=== PATIENT | female | born 1980 | race Caucasian/White ===

== ENCOUNTER 2019-10-04 11:29 | Emergency (ER) | payer OTHER ==
[2019-10-04 11:45] VITALS: TEMP 98.2
--- NOTE | 2019-10-04 12:14 | ED ---
General Adult HPI - General Chief complaint: ENT Stated complaint: throat pain Time Seen by Provider: 10/04/19 12:02 Source: patient, RN notes reviewed Mode of arrival: ambulatory Limitations: no limitations - History of Present Illness Initial comments: Patient is a pleasant 39-year-old female presenting to the emergency department with sore throat. Symptoms have been waxing and waning over the past couple of weeks. Patient does have sinus congestion and sinus drainage. Drainage is clear yellow. Patient at times has chills fatigue and myalgias. Patient does take Tylenol which seems to help. No difficulty in breathing. - Related Data Previous Rx's Medication Instructions Recorded Amoxicillin 500 mg PO Q8H #30 capsule 10/04/19 Allergies Allergy/AdvReac Type Severity Reaction Status Date / Time No Known Allergies Allergy Verified 10/04/19 11:45 Review of Systems ROS Statement: Those systems with pertinent positive or pertinent negative responses have been documented in the HPI. ROS Other: All systems not noted in ROS Statement are negative. Constitutional: Reports: chills. Denies: fever (Patient states she has subjective fever but when she checks it there is no elevation of temperature) ENT: Reports: throat pain, congestion. Denies: ear pain Respiratory: Reports: cough (Minimal dry cough). Denies: dyspnea Cardiovascular: Denies: chest pain Endocrine: Reports: fatigue Gastrointestinal: Denies: abdominal pain Genitourinary: Denies: dysuria Musculoskeletal: Denies: back pain Skin: Denies: rash Neurological: Denies: weakness Past Medical History Past Medical History: No Reported History History of Any Multi-Drug Resistant Organisms: None Reported Past Surgical History: No Surgical Hx Reported Smoking Status: Current every day smoker Past Alcohol Use History: None Reported Past Drug Use History: Marijuana General Exam Limitations: no limitations General appearance: alert, in no apparent distress Head exam: Present: normocephalic Eye exam: Present: PERRL ENT exam: Present: other (Mild pharyngeal cobblestoning. Tenderness over the frontal ethmoid and x-ray sinuses) Neck exam: Present: normal inspection Respiratory exam: Present: normal lung sounds bilaterally Cardiovascular Exam: Present: regular rate, normal rhythm GI/Abdominal exam: Present: soft. Absent: tenderness Extremities exam: Present: normal inspection. Absent: pedal edema, calf tenderness Neurological exam: Present: alert Psychiatric exam: Present: normal affect, normal mood Skin exam: Present: normal color Course Vital Signs 10/04/19 11:41 Temperature 98.2 F Pulse Rate 76 Respiratory 18 Rate Blood Pressure 159/106 O2 Sat by Pulse 97 Oximetry Disposition Clinical Impression: Sinusitis, Allergies Disposition: HOME SELF-CARE Condition: Stable Instructions (If sedation given, give patient instructions): Allergies (ED), Sinusitis (ED) Additional Instructions: Please follow-up with primary care physician in the next couple days for recheck. Have primary care physician recheck blood pressure. Return for diff iculty in breathing, uncontrolled fevers, worsening or changing symptoms or any other concerns. Continue [id number] Claritin. Please start either [id number] Flonase or nasonex Prescription sent to [facility] on [address] Prescriptions: Amoxicillin 500 mg PO Q8H #30 capsule Is patient prescribed a controlled substance at d/c from ED?: No Referrals: Reagan Elkins [STAFF PHYSICIAN] - 1-2 days Time of Disposition: 12:13
[2019-10-04 12:16] VITALS: BP 156/94; PULSE 86; RESP 16
== END 2019-10-04 13:02 | disposition home or self-care (01) ==
LOC: EC 11:29
DX: J32.9 Chronic sinusitis, unspecified (principal); T78.40XA Allergy, unspecified, initial encounter; F17.200 Nicotine dependence, unspecified, uncomplicated
CPT/HCPCS: 99282

== ENCOUNTER 2020-09-30 02:41 | Emergency (ER) | payer OTHER ==
[2020-09-30] MEDS ORDERED: ONDANSETRON 4 MG/2 ML VIAL IVP STA (03:37)
[2020-09-30] MEDS ORDERED: SODIUM CHLORIDE 0.9% 500 ML 500 ML IV STA (03:37)
[2020-09-30] MEDS ORDERED: MORPHINE SULFATE 4 MG/ML SYRINGE IV STA (03:37)
[2020-09-30 03:41] LABS: Basophils # (A) 0.1 k/uL (0-0.2); Basophils % (A) 1 %; Eosinophils # (A) 0.1 k/uL (0-0.7); Eosinophils % (A) 1 %; HCT 42.9 % (34.0-46.0); HGB 13.7 gm/dL (11.4-16.0); Lymphocytes # (A) 2.1 k/uL (1.0-4.8); Lymphocytes % (A) 17 %; MCH 29.6 pg (25.0-35.0); MCHC 32.1 g/dL (31.0-37.0); MCV 92.2 fL (80.0-100.0); Mean Platelet Volume 8.6; Monocytes # (A) 0.4 k/uL (0-1.0); Monocytes % (A) 3 %; Neutrophils # (A) 9.4 k/uL (1.3-7.7); Neutrophils % (A) 78 %; Platelet Count 386 k/uL (150-450); RBC 4.65 m/uL (3.80-5.40); RDW 15.1 % (11.5-15.5); WBC 12.1 k/uL (3.8-10.6)
--- NOTE | 2020-09-30 04:15 | CT ---
EXAMINATION TYPE: CT abdomen pelvis wo con DATE OF EXAM: 09/30/2020 COMPARISON: None HISTORY: RUQ pain CT DLP: 649.70 mGycm Automated exposure control for dose reduction was used. There is some atelectasis at the lung bases. Heart is mildly enlarged. There is no pleural effusion. Liver spleen stomach pancreas gallbladder appear intact. The bile ducts are not dilated. Liver is large and measures 22 cm in length. There is no adrenal mass. Kidneys have normal size. There is no hydronephrosis. Ureters are not dilat ed. There is no retroperitoneal adenopathy. Bladder distends smoothly. There is no inguinal hernia. T here is no free fluid in the pelvis. Lumbar vertebra have normal alignment. Uterus is anteverted. There is vacuum disc at L5-S1. There is no lumbar compression fracture. There is no evidence of a pelvic mass. The bony pelvis is intact. Appendix appears normal. There is 2 cm umbilical hernia that contains fat.. There are sigmoid diverticula without evidence of diverticulitis. There is no mesenteric edema. There is no ascites or free air. There is no sign of a bowel obstructio n. IMPRESSION: Hepatomegaly. No dilated ducts. Sigmoid diverticulosis.
[2020-09-30 04:22] LABS: Appearance,Urine Clear (Clear); Bacteria,Urine Rare /hpf; Bilirubin,Urine Negative (Negative); Blood,Urine Negative (Negative); Color,Urine Yellow; Glucose,Urine (UA) Negative (Negative); Ketones,Urine 1+ (Negative); Leukocyte Esterase,Urine Negative (Negative); Mucus,Urine Occasional /hpf; Nitrite,Urine Negative (Negative); PH, Urine 5.5 (5.0-8.0); Protein,Urine 1+ (Negative); RBC,Urine 3 /hpf (0-5); Specific Gravity,Urine 1.015 (1.001-1.035); Squamous Epithelial Cell,Urine 1 /hpf (0-4); Urobilinogen,Urine <2.0 mg/dL (<2.0); WBC,Urine 1 /hpf (0-5)
[2020-09-30 04:29] LABS: ALT 35 U/L (4-34); AST 46 U/L (14-36); African American GFR (CKD) >90 (>60 ml/min/1.73 sqM); Albumin 4.9 g/dL (3.5-5.0); Alkaline Phosphatase 154 U/L (38-126); Amylase 97 U/L (30-110); Anion Gap 14 mmol/L; Blood Urea Nitrogen 7 mg/dL (7-17); Calcium 9.7 mg/dL (8.4-10.2); Carbon Dioxide 22 mmol/L (22-30); Chloride 101 mmol/L (98-107); Glucose 170 mg/dL (74-99); Lipase 328 U/L (23-300); Non-African American GFR(CKD) >90 (>60 ml/min/1.73 sqM); Potassium 4.3 mmol/L (3.5-5.1); Sodium 137 mmol/L (137-145); Total Bilirubin 0.2 mg/dL (0.2-1.3); Total Protein 7.9 g/dL (6.3-8.2)
[2020-09-30] MEDS ORDERED: DICYCLOMINE 20 MG TAB PO STA (06:21)
[2020-09-30 06:33] VITALS: BP 166/92; PULSE 77; RESP 18; TEMP 98
--- NOTE | 2020-09-30 08:10 | US ---
EXAMINATION TYPE: US abdomen limited DATE OF EXAM: 09/30/2020 COMPARISON: Same day CT CLINICAL HISTORY: 40-year-old female. Right upper quadrant abdominal pain, attention RUQ. Pt states A BD "burning" EXAM MEASUREMENTS: Liver Length: 20.9 cm Gallbladder Wall: 0.2 cm CBD: 0.4 cm Right Kidney: 10.6 x 4.0 x 4.6 cm Pancreas: Body wnl, head and tail obscured by overlying bowel gas Liver: Heterogeneous, difficult to penetrate, enlarged. No focal mass or dilated intrahepatic bile d ucts seen. Gallbladder: Gallbladder wall thickening gallbladder wall thickness about 2 mm. No shadowing calculi seen in the gallbladder lumen. There is pericholecystic fluid seen. Evidence for sonographic Small's sign: No CBD: wnl Right Kidney: wnl IMPRESSION: 1. Right hepatic lobe measuring up to 21 cm. 2. Suggestion of hepatic steatosis. 3. Trace pericholecystic fluid, no cholelithiasis or gallbladder wall thickening. Acute acalculous ch olecystitis less likely but cannot be entirely excluded. The need for further imaging (HIDA scan) or evaluation should be determined on clinical basis
[2020-09-30] MEDS ORDERED: KETOROLAC 15 MG/ML 1 ML VIAL IVP STA (08:28)
--- NOTE | 2020-09-30 08:38 | ED ---
Abdominal Pain HPI - General Chief Complaint: Abdominal Pain Stated Complaint: Abd Pain Time Seen by Provider: 09/30/20 02:57 Source: patient Mode of arrival: ambulatory Limitations: no limitations - History of Present Illness Initial Comments: This is a 40-year-old female who presents with one day of nausea vomiting and nonspecific abdominal pain. Decreased oral intake. Pain was crampy in nature. Patient was endorsed me initially by Dr. Dockery pending CT ultrasound results. She's had no hematemesis no blood per rectum. She did later confided in me that she is a somewhat heavy drinker. No history of DTs or withdrawal symptoms. MD Complaint: abdominal pain - Related Data Previous Rx's Medication Instructions Recorded Amoxicillin 500 mg PO Q8H #30 capsule 10/04/19 Dicyclomine [Bentyl] 10 mg PO TID #12 capsule 09/30/20 Ondansetron Odt [Zofran Odt] 4 mg PO Q8HR PRN #10 tab 09/30/20 Allergies Allergy/AdvReac Type Severity Reaction Status Date / Time No Known Allergies Allergy Verified 09/30/20 02:52 Review of Systems ROS Statement: Those systems with pertinent positive or pertinent negative responses have been documented in the HPI. ROS Other: All systems not noted in ROS Statement are negative. Past Medical History Past Medical History: No Reported History History of Any Multi-Drug Resistant Organisms: None Reported Past Surgical History: No Surgical Hx Reported Smoking Status: Current every day smoker Past Alcohol Use History: None Reported Past Drug Use History: Marijuana General Exam - General Exam Comments Initial Comments: Is a well-developed well-nourished awake alert oriented 3 female Limitations: no limitations General appearance: alert, in no apparent distress Head exam: Present: atraumatic, normocephalic, normal inspection Eye exam: Present: normal appearance, PERRL, EOMI. Absent: scleral icterus, conjunctival injection, periorbital swelling ENT exam: Present: mucous membranes dry Neck exam: Present: normal inspection. Absent: tenderness, meningismus, lymphadenopathy Respiratory exam: Present: normal lung sounds bilaterally. Absent: respiratory distress, wheezes, rales, rhonchi, stridor Cardiovascular Exam: Present: regular rate, normal rhythm, normal heart sounds. Absent: systolic murmur, diastolic murmur, rubs, gallop, clicks GI/Abdominal exam: Present: soft, tenderness (Mild left-sided tenderness on my examination the patient states this is different from earlier he does feel improved at this time), normal bowel sounds. Absent: distended, guarding, rebound, rigid Extremities exam: Present: normal inspection, full ROM, normal capillary refill. Absent: tenderness, pedal edema, joint swelling, calf tenderness Back exam: Present: normal inspection Neurological exam: Present: alert, oriented X3, CN II-XII intact Psychiatric exam: Present: normal affect, normal mood Skin exam: Present: warm, dry, intact, normal color. Absent: rash Course Vital Signs 09/30/20 09/30/20 02:50 06:32 Temperature 98.3 F 98.0 F Pulse Rate 89 77 Respiratory 20 18 Rate Blood Pressure 154/92 166/92 O2 Sat by Pulse 95 97 Oximetry Medical Decision Making - Medical Decision Making Patient is feeling improved though still some left-sided cramps I did discuss findings with patient and her significant other patient will be discharged with follow-up with GI and did discuss refraining from alcohol use. She states she does probably drinking too much. We did discuss the elevated liver and pancreatic enzymes. Discussed the significance. - Lab Data Result diagrams: 09/30/20 03:07 09/30/20 03:07 Lab Results 09/30/20 09/30/20 09/30/20 Range/Units 03:07 03:07 03:07 WBC 12.1 H (3.8-10.6) k/uL RBC 4.65 (3.80-5.40) m/uL Hgb 13.7 (11.4-16.0) gm/dL Hct 42.9 (34.0-46.0) % MCV 92.2 (80.0-100.0) fL MCH 29.6 (25.0-35.0) pg MCHC 32.1 (31.0-37.0) g/dL RDW 15.1 (11.5-15.5) % Plt Count 386 (150-450) k/uL MPV 8.6 Neutrophils % 78 % Lymphocytes % 17 % Monocytes % 3 % Eosinophils % 1 % Basophils % 1 % Neutrophils # 9.4 H (1.3-7.7) k/uL Lymphocytes # 2.1 (1.0-4.8) k/uL Monocytes # 0.4 (0-1.0) k/uL Eosinophils # 0.1 (0-0.7) k/uL Basophils # 0.1 (0-0.2) k/uL Sodium (137-145) mmol/L Potassium (3.5-5.1) mmol/L Chloride (98-107) mmol/L Carbon Dioxide (22-30) mmol/L Anion Gap mmol/L BUN (7-17) mg/dL Creatinine (0.52-1.04) mg/dL Est GFR (CKD-EPI)AfAm (>60 ml/min/1.73 sqM) Est GFR (CKD-EPI)NonAf (>60 ml/min/1.73 sqM) Glucose (74-99) mg/dL Calcium (8.4-10.2) mg/dL Total Bilirubin (0.2-1.3) mg/dL AST (14-36) U/L ALT (4-34) U/L Alkaline Phosphatase (38-126) U/L Troponin I (0.000-0.034) ng/mL Total Protein (6.3-8.2) g/dL Albumin (3.5-5.0) g/dL Amylase (30-110) U/L Lipase (23-300) U/L Urine Color Yellow Urine Appearance Clear (Clear) Urine pH 5.5 (5.0-8.0) Ur Specific Sandy 1.015 (1.001-1.035) Urine Protein 1+ H (Negative) Urine Glucose (UA) Negative (Negative) Urine Ketones 1+ H (Negative) Urine Blood Negative (Negative) Urine Nitrite Negative (Negative) Urine Bilirubin Negative (Negative) Urine Urobilinogen <2.0 (<2.0) mg/dL Ur Leukocyte Esterase Negative (Negative) Urine RBC 3 (0-5) /hpf Urine WBC 1 (0-5) /hpf Ur Squamous Epith Cells 1 (0-4) /hpf Urine Bacteria Rare H (None) /hpf Urine Mucus Occasional H (None) /hpf Urine HCG, Qual Not Detected (Not Detectd) 09/30/20 09/30/20 Range/Units 03:07 03:07 WBC (3.8-10.6) k/uL RBC (3.80-5.40) m/uL Hgb (11.4-16.0) gm/dL Hct (34.0-46.0) % MCV (80.0-100.0) fL MCH (25.0-35.0) pg MCHC (31.0-37.0) g/dL RDW (11.5-15.5) % Plt Count (150-450) k/uL MPV Neutrophils % % Lymphocytes % % Monocytes % % Eosinophils % % Basophils % % Neutrophils # (1.3-7.7) k/uL Lymphocytes # (1.0-4.8) k/uL Monocytes # (0-1.0) k/uL Eosinophils # (0-0.7) k/uL Basophils # (0-0.2) k/uL Sodium 137 (137-145) mmol/L Potassium 4.3 (3.5-5.1) mmol/L Chloride 101 (98-107) mmol/L Carbon Dioxide 22 (22-30) mmol/L Anion Gap 14 mmol/L BUN 7 (7-17) mg/dL Creatinine 0.53 (0.52-1.04) mg/dL Est GFR (CKD-EPI)AfAm >90 (>60 ml/min/1.73 sqM) Est GFR (CKD-EPI)NonAf >90 (>60 ml/min/1.73 sqM) Glucose 170 H (74-99) mg/dL Calcium 9.7 (8.4-10.2) mg/dL Total Bilirubin 0.2 (0.2-1.3) mg/dL AST 46 H (14-36) U/L ALT 35 H (4-34) U/L Alkaline Phosphatase 154 H (38-126) U/L Troponin I <0.012 (0.000-0.034) ng/mL Total Protein 7.9 (6.3-8.2) g/dL Albumin 4.9 (3.5-5.0) g/dL Amylase 97 (30-110) U/L Lipase 328 H (23-300) U/L Urine Color Urine Appearance (Clear) Urine pH (5.0-8.0) Ur Specific Sandy (1.001-1.035) Urine Protein (Negative) Urine Glucose (UA) (Negative) Urine Ketones (Negative) Urine Blood (Negative) Urine Nitrite (Negative) Urine Bilirubin (Negative) Urine Urobilinogen (<2.0) mg/dL Ur Leukocyte Esterase (Negative) Urine RBC (0-5) /hpf Urine WBC (0-5) /hpf Ur Squamous Epith Cells (0-4) /hpf Urine Bacteria (None) /hpf Urine Mucus (None) /hpf Urine HCG, Qual (Not Detectd) - Radiology Data Radiology results: report reviewed, image reviewed (imaging reviewed and report reviewed. Nonspecific findings please see complete report) Disposition Clinical Impression: Abdominal pain, Gastritis, Irritable bowel Disposition: HOME SELF-CARE Condition: Good Instructions (If sedation given, give patient instructions): Abdominal Pain (ED), Acute Abdominal Pain (ED), Irritable Bowel Syndrome (ED), Abuse of Alcohol (ED), Alcohol Use Disorder (ED) Prescriptions: Dicyclomine [Bentyl] 10 mg PO TID #12 capsule Ondansetron Odt [Zofran Odt] 4 mg PO Q8HR PRN #10 tab PRN Reason: Nausea Is patient prescribed a controlled substance at d/c from ED?: No Referrals: None,Stated [Primary Care Provider] - 1-2 days
== END 2020-09-30 09:06 | disposition home or self-care (01) ==
LOC: EC 02:41
DX: K29.70 Gastritis, unspecified, without bleeding (principal); K58.9 Irritable bowel syndrome, unspecified; F17.200 Nicotine dependence, unspecified, uncomplicated; F12.90 Cannabis use, unspecified, uncomplicated
CPT/HCPCS: 36415; 80053; 82150; 83690; 84484; 85025; 81001; 81025; 76705; 74176; 99284; 96374; 96375 ×2; J2270; J2405; J1885

== ENCOUNTER → 2021-02-07 | Outpatient (CLI) | payer OTHER | END | disposition home or self-care (01) | LOC: LABWHC1 12:37 | PROVIDERS: ATTEND Emergency Medicine | DX: U07.1 COVID-19 (principal) | CPT/HCPCS: 87635 ==

== ENCOUNTER 2023-11-07 11:07 | Observation (INO) | payer OTHER ==
--- NOTE | 2023-11-07 12:54 | ED ---
General Adult HPI - General Chief complaint: Dizziness Stated complaint: Dizziness, chest pain, numbness Time Seen by Provider: 11/07/23 12:20 Source: patient Mode of arrival: ambulatory Limitations: no limitations - History of Present Illness Initial comments: Patient is a pleasant 43-year-old female with no significant past medical history presenting today for left-sided chest pain, dizziness with associated right upper extremity and right lower extremity pain and tingling. 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 This was followed by left-sided chest tightness that began radiating down her right arm. Initially had burning sensation going down right arm that progressed to a pins and needles sensation in the anterior right forearm. Also noted a similar sensation along the lateral aspect of her RLE. No new weakness, tingling does not encompass the entire extremity. Symptoms are improving. [place] somewhat short of breath, sweaty and nauseous during this episode. Patient is a current smoker and has been smoking since age of 14. Patient's father had a stroke at the age of 62. Patient has no history of ACS. No recent travel surgeries or hospitalizations. 2 weeks ago she did have an episode of hemoptysis. States she has headache however this is chronic for her and not new. Notes spots in her right eye that seems to come and go. 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 - Related Data Home Medications Medication Instructions Recorded Confirmed [id number] [phone] 0.5 tab PO Q4HR PRN 11/07/23 11/07/23 [Excedrin] Allergies Allergy/AdvReac Type Severity Reaction Status Date / Time No Known Allergies Allergy Verified 11/07/23 12:19 Review of Systems ROS Statement: Those systems with pertinent positive or pertinent negative responses have been documented in the HPI. ROS Other: All systems not noted in ROS Statement are negative. Constitutional: Denies: fever, chills Eyes: Reports: vision change Respiratory: Reports: cough, dyspnea, hemoptysis (one episode 2 weeks ago) Cardiovascular: Reports: chest pain. Denies: edema Gastrointestinal: Reports: nausea. Denies: abdominal pain, vomiting, diarrhea, melena, hematochezia Musculoskeletal: Denies: back pain Neurological: Reports: headache, paresthesias. Denies: weakness, vertigo Past Medical History Past Medical History: No Reported History History of Any Multi-Drug Resistant Organisms: None Reported Past Surgical History: Tubal Ligation Past Psychological History: Anxiety Smoking Status: Current every day smoker Past Alcohol Use History: Daily Past Drug Use History: Marijuana General Exam - General Exam Comments Initial Comments: PE: CONSTITUTIONAL: No apparent distress, well appearing SKIN: Warm, dry, no jaundice, hives or petechiae EYES: Pupils are equally round, extraocular movements intact without nystagmus, clear conjunctiva, non-icteric sclera HENT: Normocephalic, atraumatic, moist mucus membranes, oropharynx clear without exudates NECK: , Full range of motion, normal appearance PULMONARY: Clear to auscultation without wheezes, rhonchi, or rales, normal excursion, no accessory muscle use and no stridor CARDIOVASCULAR: Regular rate, rhythm, normal S1 and S2. No appreciated murmurs, rubs or gallops. Strong radial pulses with intact distal perfusion. No lower extremity edema. Reproducible chest wall TTP to left of the sternum. GASTROINTESTINAL: Soft, non-tender, non-distended, no palpable masses, no rebound or guarding. No hepatosplenomegaly MUSCULOSKELETAL: Extremities have no gross deformity, no edema, redness, or swelling. No calf swelling or TTP. NEUROLOGIC:_a/o x 3, GCS 15, normal mentation and speech. Moves all extremities x 4 without motor or sensory deficit. Cranial nerves: II (visual laurent without defects), III, IV and (extraocular movements are intact, pupils are equal with normal reaction to light), V (intact facial sensation and jaw opening), VII (no facial droop), IX and X (normal palate movement, midline uvula, normal voice), XI (symmetrical shoulder shrug and lateral head rotation against resistance), XII (midline tongue protrusion). Motor strength is 5/5 in all extremities. No abnormal movements. Normal muscle tone. Sensation to light touch is intact bilaterally. No cerebellar signs ([id number], [id number], and rapid alternating movements are normal) PSYCHIATRIC:_normal mood and affect, thought process is clear and linear Limitations: no limitations Course Vital Signs 11/07/23 11/07/23 11/07/23 11:28 12:21 13:58 Temperature 98.4 F Pulse Rate 96 87 86 Respiratory 16 17 18 Rate Blood Pressure 171/113 163/84 161/92 O2 Sat by Pulse 99 96 96 Oximetry 11/07/23 11/07/23 11/07/23 15:40 18:10 22:12 Temperature 98.5 F 97.6 F 98.3 F Pulse Rate 83 86 86 Respiratory 18 17 17 Rate Blood Pressure 160/99 158/93 O2 Sat by Pulse 96 98 97 Oximetry EKG Findings - EKG Comments: EKG Findings:: Sinus rhythm, 81 bpm, question 1 mm elevation in V1 however no other ST elevations or findings consistent with STEMI, no reciprocal depressions Medical Decision Making - Medical Decision Making Was pt. sent in by a medical professional or institution (, PA, F[employer], urgent care, hospital, or residential...) When possible be specific @ -No Did you speak to anyone other than the patient for history (EMS, parent, family, police, friend...)? What history was obtained from this source @ -No Did you review nursing and triage notes (agree or disagree)? Why? @ -I reviewed and agree with nursing and triage notes- with exception of right sided extremity and eye armenta Were old charts reviewed (outside hosp., previous admission, EMS record, old EKG, old radiological studies, urgent care reports/EKG's, residential records)? Report findings @ -No old charts were reviewed Differential Diagnosis (chest pain, altered mental status, abdominal pain women, abdominal pain men, vaginal bleeding, weakness, fever, dyspnea, syncope, headache, dizziness, GI bleed, back pain, seizure, CVA, palpatations, mental health, musculoskeletal)? @ -Differential Chest Pain: Stable Angina, Unstable Angina, STEMI, NSTEMI pericarditis, chostochondirits, Musculoskeletal, Esophageal Spasm GERD, Cholecystitis, Pancreatitis, PNA, PE, hypertensive urgency, hypertensive emergency, this is not meant to be an all- inclusive list. EKG interpreted by me (3pts min.). @ -Sinus rhythm, no arrhythmia, no STEMI X-rays interpreted by me (1pt min.). @ -None done CT interpreted by me (1pt min.). @ I see no evidence of hemorrhage or mass effect on CT brain, no LVO on CTA head neck, no PE on CT chest U/S interpreted by me (1pt. min.). @ -None done What testing was considered but not performed or refused? (CT, X-rays, U/S, labs)? Why? @ -None What meds were considered but not given or refused? Why? @ -None Did you discuss the management of the patient with other professionals (professionals i.e. , PA, F[employer]ER, lab, RT, psych nurse, criminal justice social worker, rn hedis, teacher, procurement officer, case assembler)? Give summary @ -No Was smoking cessation discussed for >3mins.? @ -No Was critical care preformed (if so, how long)? @ -No Were there social determinants of health that impacted care today? How? (Homelessness, low income, unemployed, alcoholism, drug addiction, transportation, low edu. Level, literacy, decrease access to med. care, snf, rehab)? @ -No Was there de-escalation of care discussed even if they declined (Discuss DNR or withdrawal of care, Hospice)? @ -No What co-morbidities impacted this encounter? (DM, HTN, Smoking, COPD, CAD, Cancer, CVA, ARF, Chemo, Hep., AIDS, mental health diagnosis, sleep apnea, morbid obesity)? @ -None Was patient admitted / discharged? Hospital course, mention meds given and route, prescriptions, significant lab abnormalities, going to OR and other pertinent info. @ -Hospital course Patient is a pleasant 43-year-old female prior history current smoker, has been told that her blood pressures have been high in the past so no diagnosis of hypertension, father with a stroke at 62 presenting today for chest pain dizziness described as "fogginess". On exam patient well appearing and in NAD. No diaphoresis, no focal neurologic deficits, no mumurs, rubs or gallops on car diac exam, 2+ radial pulses, skin pink and well perfused, LCTAB, some reproducible chest wall TTP along left chostochondral junction. ACS workup initiated. CT brain and CTA were added due to symptoms of tingling in RUE and RLE, stroke alert was not called due to NIH 0. D-dimer elevated 0.65. Endorsed hemoptysis cannot use years criteria to rule out PE, Will proceed with CT PE study. Labs reviewed, significant for elevated LFTs, AST/ALT 270/108, alk phos 189 did add lipase and amylase however on repeat exam patient is a soft and nontender abdomen, no epigastric tenderness. Patient does drink alcohol daily, stating that she drinks 6 beers to a half a pint of alcohol every day. Did consider US RUQ however with benign abdominal exam and LFTs reflective of chronic alcohol use do not feel ultrasound upper quadrant is indicated at this point. Will reconsider lipase and amylase significantly elevated. Otherwise lab significant for white blood cell count 13.9. Patient does have a heart score of 4 anticipate admission. Patient to these findings, symptoms have resolved, feels SL nitro may have improved symptomts, she is agreeable with plan for admission. Patient significant PMH, presenting signs and symptoms, pertinent findings thus far and pending labs/imaging presented to and discussed with Dr. Christopher who kindly accepts for admission. Disposition>>> Admission Undiagnosed new problem with uncertain prognosis? @ Yes Drug Therapy requiring intensive monitoring for toxicity (Heparin, Nitro, Insulin, Cardizem)? @ -No Were any procedures done? @ -No Diagnosis/symptom? @ -Chest pain, dizziness, parasthestias Acute, or Chronic, or Acute on Chronic? @ -Acute Uncomplicated (without systemic symptoms) or Complicated (systemic symptoms)? @ -Complicated Side effects of treatment? @ -No Exacerbation, Progression, or Severe Exacerbation? @ -No Poses a threat to life or bodily function? How? (Chest pain, USA, MD, pneumonia, PE, COPD, DKA, ARF, appy, cholecystitis, CVA, Diverticulitis, Homicidal, Suicidal, threat to staff... and all critical care pts) @ -Yes potentially, chest pain if secondary to ACS could ultimately lead to MD and subsequent - Lab Data Result diagrams: 11/08/23 07:50 11/08/23 07:50 Lab Results 11/06/23 11/07/23 11/07/23 Range/Units 12:51 12:51 12:51 WBC 13.9 H (3.8-10.6) k/uL RBC 4.01 (3.80-5.40) m/uL Hgb 13.4 (11.4-16.0) gm/dL Hct 40.1 (34.0-46.0) % MCV 100.0 (80.0-100.0) fL MCH 33.3 (25.0-35.0) pg MCHC 33.3 (31.0-37.0) g/dL RDW 14.3 (11.5-15.5) % Plt Count 303 (150-450) k/uL MPV 9.8 Neutrophils % 74 % Lymphocytes % 20 % Monocytes % 3 % Eosinophils % 1 % Basophils % 1 % Neutrophils # 10.3 H (1.3-7.7) k/uL Lymphocytes # 2.7 (1.0-4.8) k/uL Monocytes # 0.5 (0-1.0) k/uL Eosinophils # 0.2 (0-0.7) k/uL Basophils # 0.1 (0-0.2) k/uL Macrocytosis Slight PT 10.7 (10.0-12.5) sec INR 1.0 (<1.2) APTT 25.3 (22.0-30.0) sec D-Dimer 0.65 H (<0.60) mg/L FEU Sodium (137-145) mmol/L Potassium (3.5-5.1) mmol/L Chloride (98-107) mmol/L Carbon Dioxide (22-30) mmol/L Anion Gap mmol/L BUN (7-17) mg/dL Creatinine (0.52-1.04) mg/dL Est GFR (CKD-EPI)AfAm (>60 ml/min/1.73 sqM) Est GFR (CKD-EPI)NonAf (>60 ml/min/1.73 sqM) Glucose (74-99) mg/dL Calcium (8.4-10.2) mg/dL Total Bilirubin (0.2-1.3) mg/dL AST (14-36) U/L ALT (4-34) U/L Alkaline Phosphatase (38-126) U/L Troponin I (0.000-0.034) ng/mL NT-Pro-B Natriuret Pep pg/mL Total Protein (6.3-8.2) g/dL Albumin (3.5-5.0) g/dL Triglycerides 155.00 H (0.00-149.00) mg/dL Cholesterol 279.00 H (0.00-200.00) mg/dL LDL Cholesterol, Calc 185.9 H (0.0-131.0) mg/dL VLDL Cholesterol, Calc 31.00 (5.00-40.00) mg/dL HDL Cholesterol 62.10 H (40.00-60.00) mg/dL Cholesterol/HDL Ratio 4.49 Ratio Amylase (30-110) U/L Lipase (23-300) U/L TSH (0.465-4.680) mIU/L Urine Opiates Screen (NotDetected) Ur Oxycodone Screen (NotDetected) Urine Methadone Screen (NotDetected) Acetaminophen ug/mL Ur Barbiturates Screen (NotDetected) U Tricyclic Antidepress (NotDetected) Ur Phencyclidine Scrn (NotDetected) Ur Amphetamines Screen (NotDetected) U Methamphetamines Scrn (NotDetected) U Benzodiazepines Scrn (NotDetected) Urine Cocaine Screen (NotDetected) U Marijuana (THC) Screen (NotDetected) 11/07/23 11/07/23 11/07/23 Range/Units 12:51 12:51 12:51 WBC (3.8-10.6) k/uL RBC (3.80-5.40) m/uL Hgb (11.4-16.0) gm/dL Hct (34.0-46.0) % MCV (80.0-100.0) fL MCH (25.0-35.0) pg MCHC (31.0-37.0) g/dL RDW (11.5-15.5) % Plt Count (150-450) k/uL MPV Neutrophils % % Lymphocytes % % Monocytes % % Eosinophils % % Basophils % % Neutrophils # (1.3-7.7) k/uL Lymphocytes # (1.0-4.8) k/uL Monocytes # (0-1.0) k/uL Eosinophils # (0-0.7) k/uL Basophils # (0-0.2) k/uL Macrocytosis PT (10.0-12.5) sec INR (<1.2) APTT (22.0-30.0) sec D-Dimer (<0.60) mg/L FEU Sodium 134 L (137-145) mmol/L Potassium 4.6 (3.5-5.1) mmol/L Chloride 104 (98-107) mmol/L Carbon Dioxide 24 (22-30) mmol/L Anion Gap 6 mmol/L BUN 12 (7-17) mg/dL Creatinine 0.50 L (0.52-1.04) mg/dL Est GFR (CKD-EPI)AfAm >90 (>60 ml/min/1.73 sqM) Est GFR (CKD-EPI)NonAf >90 (>60 ml/min/1.73 sqM) Glucose 105 H (74-99) mg/dL Calcium 9.7 (8.4-10.2) mg/dL Total Bilirubin 1.0 (0.2-1.3) mg/dL AST 270 H (14-36) U/L ALT 108 H (4-34) U/L Alkaline Phosphatase 189 H (38-126) U/L Troponin I <0.012 (0.000-0.034) ng/mL NT-Pro-B Natriuret Pep 388 pg/mL Total Protein 7.6 (6.3-8.2) g/dL Albumin 4.5 (3.5-5.0) g/dL Triglycerides (0.00-149.00) mg/dL Cholesterol (0.00-200.00) mg/dL LDL Cholesterol, Calc (0.0-131.0) mg/dL VLDL Cholesterol, Calc (5.00-40.00) mg/dL HDL Cholesterol (40.00-60.00) mg/dL Cholesterol/HDL Ratio Ratio Amylase (30-110) U/L Lipase (23-300) U/L TSH 1.890 (0.465-4.680) mIU/L Urine Opiates Screen Not Detected (NotDetected) Ur Oxycodone Screen Not Detected (NotDetected) Urine Methadone Screen Not Detected (NotDetected) Acetaminophen ug/mL Ur Barbiturates Screen Not Detected (NotDetected) U Tricyclic Antidepress Not Detected (NotDetected) Ur Phencyclidine Scrn Not Detected (NotDetected) Ur Amphetamines Screen Not Detected (NotDetected) U Methamphetamines Scrn Not Detected (NotDetected) U Benzodiazepines Scrn Not Detected (NotDetected) Urine Cocaine Screen Not Detected (NotDetected) U Marijuana (THC) Screen Not Detected (NotDetected) 11/07/23 Range/Units 12:51 WBC (3.8-10.6) k/uL RBC (3.80-5.40) m/uL Hgb (11.4-16.0) gm/dL Hct (34.0-46.0) % MCV (80.0-100.0) fL MCH (25.0-35.0) pg MCHC (31.0-37.0) g/dL RDW (11.5-15.5) % Plt Count (150-450) k/uL MPV Neutrophils % % Lymphocytes % % Monocytes % % Eosinophils % % Basophils % % Neutrophils # (1.3-7.7) k/uL Lymphocytes # (1.0-4.8) k/uL Monocytes # (0-1.0) k/uL Eosinophils # (0-0.7) k/uL Basophils # (0-0.2) k/uL Macrocytosis PT (10.0-12.5) sec INR (<1.2) APTT (22.0-30.0) sec D-Dimer (<0.60) mg/L FEU Sodium (137-145) mmol/L Potassium (3.5-5.1) mmol/L Chloride (98-107) mmol/L Carbon Dioxide (22-30) mmol/L Anion Gap mmol/L BUN (7-17) mg/dL Creatinine (0.52-1.04) mg/dL Est GFR (CKD-EPI)AfAm (>60 ml/min/1.73 sqM) Est GFR (CKD-EPI)NonAf (>60 ml/min/1.73 sqM) Glucose (74-99) mg/dL Calcium (8.4-10.2) mg/dL Total Bilirubin (0.2-1.3) mg/dL AST (14-36) U/L ALT (4-34) U/L Alkaline Phosphatase (38-126) U/L Troponin I (0.000-0.034) ng/mL NT-Pro-B Natriuret Pep pg/mL Total Protein (6.3-8.2) g/dL Albumin (3.5-5.0) g/dL Triglycerides (0.00-149.00) mg/dL Cholesterol (0.00-200.00) mg/dL LDL Cholesterol, Calc (0.0-131.0) mg/dL VLDL Cholesterol, Calc (5.00-40.00) mg/dL HDL Cholesterol (40.00-60.00) mg/dL Cholesterol/HDL Ratio Ratio Amylase 71 (30-110) U/L Lipase 232 (23-300) U/L TSH (0.465-4.680) mIU/L Urine Opiates Screen (NotDetected) Ur Oxycodone Screen (NotDetected) Urine Methadone Screen (NotDetected) Acetaminophen <10.0 ug/mL Ur Barbiturates Screen (NotDetected) U Tricyclic Antidepress (NotDetected) Ur Phencyclidine Scrn (NotDetected) Ur Amphetamines Screen (NotDetected) U Methamphetamines Scrn (NotDetected) U Benzodiazepines Scrn (NotDetected) Urine Cocaine Screen (NotDetected) U Marijuana (THC) Screen (NotDetected) Disposition Clinical Impression: Chest pain, Arm paresthesia, right, Elevated LFTs, Dizziness Disposition: ADMITTED IP TO THIS HOSP Time of Disposition: 14:36
[2023-11-07] MEDS: SODIUM CHLORIDE 0.9% 1,000 ML IV STA (12:58)
[2023-11-07] MEDS: ACETAMINOPHEN TAB 500 MG TAB PO STA (13:06)
[2023-11-07] MEDS: NITROGLYCERIN SL TABS 0.4 MG TAB SUBLINGUAL STA (13:09)
[2023-11-07 13:12] LABS: Basophils # (A) 0.1 k/uL (0-0.2); Basophils % (A) 1 %; Eosinophils # (A) 0.2 k/uL (0-0.7); Eosinophils % (A) 1 %; HCT 40.1 % (34.0-46.0); HGB 13.4 gm/dL (11.4-16.0); Lymphocytes # (A) 2.7 k/uL (1.0-4.8); Lymphocytes % (A) 20 %; MCH 33.3 pg (25.0-35.0); MCHC 33.3 g/dL (31.0-37.0); Macrocytosis Slight; Mean Platelet Volume 9.8; Monocytes # (A) 0.5 k/uL (0-1.0); Monocytes % (A) 3 %; Neutrophils # (A) 10.3 k/uL (1.3-7.7); Neutrophils % (A) 74 %; Platelet Count 303 k/uL (150-450); RBC 4.01 m/uL (3.80-5.40); RDW 14.3 % (11.5-15.5); WBC 13.9 k/uL (3.8-10.6)
[2023-11-07 13:17] LABS: Prothrombin Time 10.7 sec (10.0-12.5)
[2023-11-07 13:20] LABS: ALT 108 U/L (4-34); AST 270 U/L (14-36); African American GFR (CKD) >90 (>60 ml/min/1.73 sqM); Albumin 4.5 g/dL (3.5-5.0); Alkaline Phosphatase 189 U/L (38-126); Anion Gap 6 mmol/L; Blood Urea Nitrogen 12 mg/dL (7-17); Calcium 9.7 mg/dL (8.4-10.2); Carbon Dioxide 24 mmol/L (22-30); Chloride 104 mmol/L (98-107); Glucose 105 mg/dL (74-99); Non-African American GFR(CKD) >90 (>60 ml/min/1.73 sqM); Potassium 4.6 mmol/L (3.5-5.1); Sodium 134 mmol/L (137-145); Total Protein 7.6 g/dL (6.3-8.2)
[2023-11-07 13:29] LABS: NT-Pro-B-Type Natriuretic Pept 388 pg/mL
[2023-11-07 13:31] LABS: Partial Thromboplastin Time 25.3 sec (22.0-30.0)
--- NOTE | 2023-11-07 14:21 | CT ---
EXAMINATION TYPE: CT brain wo con CT DLP: 2269.2 mGycm, Automated exposure control for dose reduction was used. DATE OF EXAM: 11/07/2023 2:11 PM COMPARISON: 01/24/2012. CLINICAL INDICATION: Female, 43 years old with history of dizziness, tingling right hand, Dizziness, tingling in RT hand, leg TECHNIQUE: Brain: Axial CT images of the brain were obtained with coronal and sagittal reformats created and rev iewed. Contrast used: None. Oral contrast used: None. FINDINGS: Brain: Extra-axial spaces: No abnormal extra-axial fluid collections. Ventricular system: Within normal limits Cerebral parenchyma: No acute intraparenchymal hemorrhage or mass effect. The escalona-white junction is well differentiated. Cerebellum: Unremarkable. Mass effect: No evidence of midline shift. Intracranial vasculature: unremarkable Soft tissues: Normal. Calvarium/osseous structures: No depressed skull fracture. Paranasal sinuses and mastoid air cells: Mild scattered paranasal sinus disease. Visualized orbits: Orbital contents are intact. IMPRESSION: No acute intracranial process.
--- NOTE | 2023-11-07 14:27 | CT ---
EXAMINATION TYPE: CT angio head neck DATE OF EXAM: 11/07/2023 HISTORY: Dizziness, tingling in RT hand, leg COMPARISON: None CT DLP: 2269.2 mGycm. Automated Exposure Control for Dose Reduction was Utilized. TECHNIQUE: CTA scan of the head and neck is performed with IV Contrast, patient injected with 65 mL of Isovue 370, axial images are obtained, coronal and sagittal reformatted images are reviewed. 3D re constructed images are created on an independent workstation and reviewed. FINDINGS: Carotid/Vascular Structures: No calcified plaque, stenosis, aneurysm or vascular malformation. IMPRESSION: No significant abnormality is seen. NASCET criteria was used in interpretation of this exam?
[2023-11-07] MEDS ORDERED: MORPHINE SULFATE 4 MG/ML SYRINGE IV PRN (14:32)
[2023-11-07] MEDS ORDERED: MAG HYDROX/AL HYDROX/SIMETH 30 ML CUP PO PRN (14:32)
[2023-11-07] MEDS ORDERED: NALOXONE 0.4 MG/ML 1 ML VIAL IV PRN (14:32)
[2023-11-07] MEDS ORDERED: ONDANSETRON 4 MG/2 ML VIAL IVP PRN (14:32)
[2023-11-07] MEDS ORDERED: CALCIUM CARBONATE 500 MG CHEWABLE PO PRN (14:32)
--- NOTE | 2023-11-07 14:35 | CT ---
EXAMINATION TYPE: CT angio chest DATE OF EXAM: 11/07/2023 2:12 PM COMPARISON: None HISTORY: Chest pain, rule out PE CT DLP: 2269.2 mGycm Automated exposure control for dose reduction was used. CONTRAST: CTA scan of the thorax is performed with IV Contrast, patient injected with 100 mL of Isovue 370, pul monary embolism protocol. 3-D postprocessing was performed. FINDINGS: There is an 8.2 mm nodule in the right lung apex. Neoplasm is not excluded. Follow-up CT in 3 months is recommended as to stability. There is no acute airspace disease. There is no pleural effusion or pneumothorax. The great vessels chest are normal and there is no mediastinal, hilar or axillary adenopathy. There are no filling defects within the pulmonary arterial circulation suggest pulmonary embolus. The osseous structures are intact. IMPRESSION: 1. No evidence pulmonary embolus. 2. 8.2 cm right apical lung nodule and neoplasm is not excluded. Three-month CT of the chest recommen ded to confirm stability.
[2023-11-07 14:42] LABS: Amphetamine Screen,Urine Not Detected (NotDetected); Barbiturate Screen,Urine Not Detected (NotDetected); Benzodiazepines Screen,Urine Not Detected (NotDetected); Cocaine Screen,Urine Not Detected (NotDetected); Methadone Screen, Urine Not Detected (NotDetected); Opiate Screen,Urine Not Detected (NotDetected); Oxycodone Screen, Urine Not Detected (NotDetected); Phencyclidine Screen,Urine Not Detected (NotDetected); Tricyclic Antidepressant,Urine Not Detected (NotDetected); Urn Cannabinoid Scrn Not Detected (NotDetected)
[2023-11-07] MEDS: SODIUM CHLORIDE 0.9% 1,000 ML IV ONE (14:44)
[2023-11-07] MEDS: NICOTINE 21MG/24HR PATCH TRANSDERM SCH (14:45)
[2023-11-07 15:00] LABS: Acetaminophen <10.0 ug/mL; Amylase 71 U/L (30-110); Lipase 232 U/L (23-300)
[2023-11-07] MEDS: FAMOTIDINE 20 MG TAB PO SCH (20:45)
[2023-11-08 04:29] LABS: Chol/HDL Ratio 4.49 Ratio; LDL Cholesterol,Calculated 185.9 mg/dL (0.0-131.0)
[2023-11-08 09:53] LABS: African American GFR (CKD) >90 (>60 ml/min/1.73 sqM); Anion Gap 8 mmol/L; Blood Urea Nitrogen 6 mg/dL (7-17); Calcium 8.9 mg/dL (8.4-10.2); Carbon Dioxide 24 mmol/L (22-30); Chloride 104 mmol/L (98-107); Glucose 157 mg/dL (74-99); Non-African American GFR(CKD) >90 (>60 ml/min/1.73 sqM); Potassium 4.5 mmol/L (3.5-5.1); Sodium 136 mmol/L (137-145)
--- NOTE | 2023-11-08 10:26 | P.CRDCN ---
History of Present Illness Consult date: 11/08/23 Consult reason: chest pain History of present illness: This is a 43-year-old female with past medical history of tobacco use and dependence. We have been asked to evaluate the patient for chest pain. 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 Patient presented with blood pressure of 171/113. Patient was working and developed dizziness, chest pain and right arm and mostly in the right hand. She describes chest discomfort with sweats, nausea. No CP with DB. No CP now but feels tired and has GARCIA. She also has sweety and cold sensation. Smokes 1/2 PPD and 1 pint of alcohol per day and occasional marijuana use. Blood pressure 143/86, heart rate 84, pulse ox 99% on room air. She is status post 2 L of IV fluid, Nitrostat and Tylenol. She has been told she has HTN and elevated LFTs but has not followed up on these issues. EKG: Sinus rhythm CAT scan of the brain: No acute process CTA head and neck: No significant abnormality CTA chest: No pulmonary embolism. 8.2 mm right apical lung nodule and neoplasm not excluded. Laboratory studies: WBC 13.9, hemoglobin 13.4. D-dimer 0.65. Sodium 134, pot assium 4.6, creatinine 0.5. AST 270, ALT 108, alkaline phosphatase 189. Troponin negative x 3. proBNP 388. Triglycerides 155, cholesterol 279, LDL 185, HDL 62. TSH 1.89. Urine drug screen was negative. Acetaminophen level less than 10. Home cardiac medications: None Review Of Systems: At the time of my exam: CONSTITUTIONAL: Denies fever or chills. HEENT: Denies blurred vision, vision changes, or eye pain. Denies hemoptysis CARDIOVASCULAR: Denies chest pain. Denies orthopnea. Denies PND. Denies palpitations RESPIRATORY: Denies shortness of breath. GASTROINTESTINAL: Denies abdominal pain. Denies nausea or vomiting. HEMATOLOGIC: Denies bleeding disorders. GENITOURINARY: Denies any blood in urine. SKIN: Denies puritis. Denies rash. Physical examination: Gen: This is a 43-year-old female in no acute distress VS: reviewed HEENT: Head is atraumatic, normocephalic. Pupils equal, round. Sclerae is anicteric. NECK: Supple. No JVD. LUNGS: Clear to auscultation. No wheezes or rhonchi. No intercostal retractions. HEART: Regular rate and rhythm. No murmur. + chest wall tenderness. ABDOMEN: Soft No tenderness. EXTREMITIES: No pedal edema. No calf tenderness. NEUROLOGICAL: Patient is awake, alert and oriented x3. Assessment: Atypical chest pain, acute coronary syndrome ruled out Elevated liver function test Hypertension Hyperlipidemia 8.2 mm right apical lung nodule Tobacco use and dependence Alcohol abuse Plan: Start patient on losartan 25 mg daily Obtain 2-D echocardiogram and Doppler study to assess cardiac structure and function Smoking cessation. Patient will be provided the [employer] quit line information at discharge. Alcohol cessation or reduction If echocardiogram is unremarkable, patient is cleared for discharge from cardiology May follow-up in the office in [address] Padron. Further recommendations to follow based upon clinical course Thank you kindly for this consultation. Nurse practitioner note has been reviewed, I agree with documented findings and plan of care. Patient was seen and examined. Past Medical History Past Medical History: No Reported History History of Any Multi-Drug Resistant Organisms: None Reported Past Surgical History: Tubal Ligation Past Psychological History: Anxiety Smoking Status: Current every day smoker Past Alcohol Use History: Daily Past Drug Use History: Marijuana Medications and Allergies Home Medications Medication Instructions Recorded Confirmed Type [id number] [id number] 0.5 tab PO Q4HR PRN 11/07/23 11/07/23 History [Excedrin] Allergies Allergy/AdvReac Type Severity Reaction Status Date / Time No Known Allergies Allergy Verified 11/07/23 12:19 Physical Exam Vitals: Vital Signs Temp Pulse Pulse Resp BP BP Pulse Ox 11/08/23 02:00 84 16 143/86 99 11/07/23 22:43 98.2 F 82 16 191/117 97 11/07/23 22:12 98.3 F 86 17 158/93 97 11/07/23 18:10 97.6 F 86 17 98 11/07/23 15:40 98.5 F 83 18 160/99 96 11/07/23 13:58 86 18 161/92 96 11/07/23 12:21 87 17 163/84 96 11/07/23 11:28 98.4 F 96 16 171/113 99 Intake and Output 11/07/23 11/08/23 11/08/23 22:59 06:59 14:59 Intake Total 540 118 Balance 540 118 Intake: Oral 540 118 Other: Voiding Method Toilet Toilet # Voids 1 Weight 72.575 kg 74.9 kg Results 11/07/23 12:51 11/08/23 07:50 Cardiac Enzymes 11/07/23 11/07/23 11/07/23 Range/Units 12:51 12:51 18:12 AST 270 H (14-36) U/L Troponin I <0.012 0.012 (0.000-0.034) ng/mL 11/07/23 Range/Units 21:06 AST (14-36) U/L Troponin I 0.012 (0.000-0.034) ng/mL Coagulation 11/07/23 Range/Units 12:51 PT 10.7 (10.0-12.5) sec APTT 25.3 (22.0-30.0) sec Lipids 11/06/23 Range/Units 12:51 Triglycerides 155.00 H (0.00-149.00) mg/dL Cholesterol 279.00 H (0.00-200.00) mg/dL HDL Cholesterol 62.10 H (40.00-60.00) mg/dL Cholesterol/HDL Ratio 4.49 Ratio CBC 11/07/23 Range/Units 12:51 WBC 13.9 H (3.8-10.6) k/uL RBC 4.01 (3.80-5.40) m/uL Hgb 13.4 (11.4-16.0) gm/dL Hct 40.1 (34.0-46.0) % Plt Count 303 (150-450) k/uL Comprehensive Metabolic Panel 11/07/23 Range/Units 12:51 Sodium 134 L (137-145) mmol/L Potassium 4.6 (3.5-5.1) mmol/L Chloride 104 (98-107) mmol/L Carbon Dioxide 24 (22-30) mmol/L BUN 12 (7-17) mg/dL Creatinine 0.50 L (0.52-1.04) mg/dL Glucose 105 H (74-99) mg/dL Calcium 9.7 (8.4-10.2) mg/dL AST 270 H (14-36) U/L ALT 108 H (4-34) U/L Alkaline Phosphatase 189 H (38-126) U/L Total Protein 7.6 (6.3-8.2) g/dL Albumin 4.5 (3.5-5.0) g/dL Current Medications Generic Name Dose Route Start Last Admin Trade Name Freq PRN Reason Stop Dose Admin Acetaminophen 650 mg 11/07/23 14:32 Acetaminophen Tab 325 Mg Tab PO Q6HR PRN Mild Pain or Fever > 100.5 Hydrocodone Bitart/Acetaminophen 1 each 11/07/23 14:32 Hydrocodone/Apap 5-325mg 1 Each Tab PO Q6HR PRN Moderate Pain (Scale 4 to 6) Al Hydroxide/Mg Hydroxide 15 ml 11/07/23 14:32 Mag Hydrox/Al Hydrox/Simeth 30 Ml Cup PO Q6HR PRN Indigestion Calcium Carbonate/Glycine 1,000 mg 11/07/23 14:32 Calcium Carbonate 500 Mg Chewable PO Q4HR PRN Dyspepsia Famotidine 20 mg 11/07/23 21:00 11/07/23 20:45 Famotidine 20 Mg Tab PO 20 mg BID LORIE Administration Morphine Sulfate 4 mg 11/07/23 14:32 Morphine Sulfate 4 Mg/Ml Syringe IV Q4HR PRN Severe Pain (Scale 7 to 10) Naloxone HCl 0.2 mg 11/07/23 14:32 Naloxone 0.4 Mg/Ml 1 Ml Vial IV Q2M PRN Opioid Reversal Nicotine 1 patch 11/07/23 14:45 11/07/23 14:45 Nicotine 21mg/24hr Patch TRANSDERM 1 patch DAILY LORIE Administration Ondansetron HCl 4 mg 11/07/23 14:32 Ondansetron 4 Mg/2 Ml Vial IVP Q8HR PRN Nausea And Vomiting Intake and Output 11/07/23 11/08/23 11/08/23 22:59 06:59 14:59 Intake Total 540 118 Balance 540 118 Intake: Oral 540 118 Other: Voiding Method Toilet Toilet # Voids 1 Weight 72.575 kg 74.9 kg 11/07/23 12:51 11/07/23 12:51
[2023-11-08] MEDS: LOSARTAN 25 MG TAB PO SCH (11:01)
[2023-11-08 11:14] LABS: Bilirubin, Delta 0.2 mg/dL (0.0-0.2); Bilirubin,Unconjugated 0.4 mg/dL (0.0-1.1); Total Bilirubin 0.6 mg/dL (0.2-1.3); Total Protein 6.7 g/dL (6.3-8.2)
[2023-11-08 13:18] LABS: Basophils % (A) 1.2 %; Eosinophils # (A) 0.26 X 10*3/uL (0.04-0.35); Eosinophils % (A) 3.1 %; HCT 39.2 % (37.2-46.3); HGB 12.9 g/dL (12.0-15.0); Lymphocytes # (A) 2.69 X 10*3/uL (0.90-5.00); Lymphocytes % (A) 32.4 %; MCH 32.7 pg (27.0-32.0); MCHC 32.9 g/dL (32.0-37.0); MCV 99.5 FL (80.0-97.0); Mean Platelet Volume 12.8 FL (9.5-12.2); Monocytes # (A) 0.47 X 10*3/uL (0.20-1.00); Monocytes % (A) 5.7 %; NRBC Per 100 WBC 0 X 10*3/uL (0.00-0.01); Neutrophils # (A) 4.77 X 10*3/uL (1.80-7.70); Neutrophils % (A) 57.4 %; Platelet Count 283 X 10*3/uL (140-440); RBC 3.94 X 10*6/uL (4.10-5.20); RDW 14.4 % (11.5-14.5); WBC 8.31 X 10*3/uL (4.50-10.00)
[2023-11-08] MEDS: ACETAMINOPHEN TAB 325 MG TAB PO PRN (15:23)
--- NOTE | 2023-11-08 17:00 | P.HPIM ---
History of Present Illness H&P Date: 11/07/23 Chief Complaint: Chest pain/dizziness 43-year-old female with no significant past medical history presenting today for left-sided chest pain, dizziness with associated right upper extremity and right lower extremity pain and tingling. 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 This was followed by left-sided chest tightness that began radiating down her right arm. Initially had burning sensation going down right arm that progressed to a pins and needles sensation in the anterior right forearm. Also noted a similar sensation along the lateral aspect of her RLE. No new weakness, tingling does not encompass the entire extremity. Symptoms are improving. [place] somewhat short of breath, sweaty and nauseous during this episode. Patient is a current smoker and has been smoking since age of 14. Patient's father had a stroke at the age of 62. Patient has no history of ACS. No recent travel surgeries or hospitalizations. 2 weeks ago she did have an episode of hemoptysis. States she has headache however this is chronic for her and not new. Notes spots in her right eye that seems to come and go. 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 Blood work completed in ED reveals a WBC of 8.3, hemoglobin of 12.9 and platelet count of 283, sodium 136, potassium 4.5, BUNs/creatinine of 6/0.51 and blood glucose of 157, troponin less than 0.012, TSH of 1.890, AST/ALT elevated at 2 70/108 Review of Systems REVIEW OF SYSTEMS: CONSTITUTIONAL: No fever, no malaise, no fatigue. HEENT: No recent visual problems or hearing problems. Denied any sore throat. CARDIOVASCULAR: No chest pain, orthopnea, PND, no palpitations, no syncope. PULMONARY: No shortness of breath, no cough, no hemoptysis. GASTROINTESTINAL: No diarrhea, no nausea, no vomiting, no abdominal pain. NEUROLOGICAL: No headaches, no weakness, no numbness. HEMATOLOGICAL: Denies any bleeding or petechiae. GENITOURINARY: Denies any burning micturition, frequency, or urgency. MUSCULOSKELETAL/RHEUMATOLOGICAL: Denies any joint pain, swelling, or any muscle pain. ENDOCRINE: Denies any polyuria or polydipsia. The rest of the 14-point review of systems is negative. Past Medical History Past Medical History: No Reported History History of Any Multi-Drug Resistant Organisms: None Reported Past Surgical History: Tubal Ligation Past Psychological History: Anxiety Smoking Status: Current every day smoker Past Alcohol Use History: Daily Past Drug Use History: Marijuana Medications and Allergies Home Medications Medication Instructions Recorded Confirmed Type [id number]-[id number]-[id number] 0.5 tab PO Q4HR PRN 11/07/23 11/07/23 History [Excedrin] Allergies Allergy/AdvReac Type Severity Reaction Status Date / Time No Known Allergies Allergy Verified 11/07/23 12:19 Physical Exam Vitals: Vital Signs Temp Pulse Resp BP Pulse Ox 11/07/23 15:40 98.5 F 83 18 160/99 96 11/07/23 13:58 86 18 161/92 96 11/07/23 12:21 87 17 163/84 96 11/07/23 11:28 98.4 F 96 16 171/113 99 Intake and Output 11/07/23 11/07/23 11/07/23 06:59 14:59 22:59 Other: Weight 72.575 kg Gen: This is a 43-year-old female in no acute distress VS: reviewed HEENT: Head is atraumatic, normocephalic. Pupils equal, round. Sclerae is anicteric. NECK: Supple. No JVD. LUNGS: Clear to auscultation. No wheezes or rhonchi. No intercostal retractions. HEART: Regular rate and rhythm. No murmur. + chest wall tenderness. ABDOMEN: Soft No tenderness. EXTREMITIES: No pedal edema. No calf tenderness. NEUROLOGICAL: Patient is awake, alert and oriented x3. Results CBC & Chem 7: 11/08/23 07:50 11/08/23 07:50 Labs: Abnormal Lab Results - Last 24 Hours (Table) 11/07/23 11/07/23 11/07/23 Range/Units 12:51 12:51 12:51 WBC 13.9 H (3.8-10.6) k/uL Neutrophils # 10.3 H (1.3-7.7) k/uL D-Dimer 0.65 H (<0.60) mg/L FEU Sodium 134 L (137-145) mmol/L Creatinine 0.50 L (0.52-1.04) mg/dL Glucose 105 H (74-99) mg/dL AST 270 H (14-36) U/L ALT 108 H (4-34) U/L Alkaline Phosphatase 189 H (38-126) U/L Assessment and Plan Assessment: 1. Chest pain rule out acute coronary syndrome -Patient is admitted to telemetry; will monitor EKG and cycle troponin; order 2D echo -Consult cardiology for further evaluation 2. Uncontrolled hypertension; patient has been evaluated by cardiology and is recommended to be placed on losartan 25 mg daily 3. Elevated liver enzymes; likely related to chronic alcohol use; we will monitor liver enzymes 4. Chronic alcohol abuse/tobacco abuse; patient counseled on need for smoking and alcohol cessation 5. Hyperlipidemia; currently not on any statin therapy 6. Right apical lung nodule VTE prophylaxis; SCDs CODE STATUS; full code
--- NOTE | 2023-11-08 17:01 | P.PN ---
Subjective Progress Note Date: 11/08/23 43-year-old female with no significant past medical history presenting today for left-sided chest pain, dizziness with associated right upper extremity and right lower extremity pain and tingling. 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 This was followed by left-sided chest tightness that began radiating down her right arm. Initially had burning sensation going down right arm that progressed to a pins and needles sensation in the anterior right forearm. Also noted a similar sensation along the lateral aspect of her RLE. No new weakness, tingling does not encompass the entire extremity. Symptoms are improving. [place] somewhat short of breath, sweaty and nauseous during this episode. Patient is a current smoker and has been smoking since age of 14. Patient's father had a stroke at the age of 62. Patient has no history of ACS. No recent travel surgeries or hospitalizations. 2 weeks ago she did have an episode of hemoptysis. States she has headache however this is chronic for her and not new. Notes spots in her right eye that seems to come and go. 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 Blood work completed in ED reveals a WBC of 8.3, hemoglobin of 12.9 and platelet count of 283, sodium 136, potassium 4.5, BUNs/creatinine of 6/0.51 and blood glucose of 157, troponin less than 0.012, TSH of 1.890, AST/ALT elevated at 270/108 Objective - Vital Signs Vital signs: Vital Signs Temp 98.2 F 11/08/23 08:15 Pulse 88 11/08/23 08:15 Resp 17 11/08/23 08:15 BP 130/68 11/08/23 08:15 Pulse Ox 97 11/08/23 08:15 FiO2 Intake & Output 11/07/23 11/08/23 11/08/23 18:59 06:59 18:59 Intake Total 540 118 Balance 540 118 Weight 72.575 kg 74.9 kg Intake: Oral 540 118 Other: Voiding Method Toilet # Voids 1 - Exam Gen: This is a 43-year-old female in no acute distress VS: reviewed HEENT: Head is atraumatic, normocephalic. Pupils equal, round. Sclerae is anicteric. NECK: Supple. No JVD. LUNGS: Clear to auscultation. No wheezes or rhonchi. No intercostal retractions. HEART: Regular rate and rhythm. No murmur. + chest wall tenderness. ABDOMEN: Soft No tenderness. EXTREMITIES: No pedal edema. No calf tenderness. NEUROLOGICAL: Patient is awake, alert and oriented x3. - Labs CBC & Chem 7: 11/08/23 07:50 11/08/23 07:50 Labs: Abnormal Lab Results - Last 24 Hours (Table) 11/06/23 11/07/23 11/07/23 Range/Units 12:51 12:51 12:51 WBC 13.9 H (3.8-10.6) k/uL Neutrophils # 10.3 H (1.3-7.7) k/uL D-Dimer 0.65 H (<0.60) mg/L FEU Sodium (137-145) mmol/L BUN (7-17) mg/dL Creatinine (0.52-1.04) mg/dL Glucose (74-99) mg/dL AST (14-36) U/L ALT (4-34) U/L Alkaline Phosphatase (38-126) U/L Triglycerides 155.00 H (0.00-149.00) mg/dL Cholesterol 279.00 H (0.00-200.00) mg/dL LDL Cholesterol, Calc 185.9 H (0.0-131.0) mg/dL HDL Cholesterol 62.10 H (40.00-60.00) mg/dL 11/07/23 11/08/23 Range/Units 12:51 07:50 WBC (3.8-10.6) k/uL Neutrophils # (1.3-7.7) k/uL D-Dimer (<0.60) mg/L FEU Sodium 134 L 136 L (137-145) mmol/L BUN 6 L (7-17) mg/dL Creatinine 0.50 L 0.51 L (0.52-1.04) mg/dL Glucose 105 H 157 H (74-99) mg/dL AST 270 H (14-36) U/L ALT 108 H (4-34) U/L Alkaline Phosphatase 189 H (38-126) U/L Triglycerides (0.00-149.00) mg/dL Cholesterol (0.00-200.00) mg/dL LDL Cholesterol, Calc (0.0-131.0) mg/dL HDL Cholesterol (40.00-60.00) mg/dL Assessment and Plan Assessment: 1. Chest pain rule out acute coronary syndrome -Patient is admitted to telemetry; will monitor EKG and cycle troponin; order 2D echo -Consult cardiology for further evaluation 2. Uncontrolled hypertension; patient has been evaluated by cardiology and is recommended to be placed on losartan 25 mg daily 3. Elevated liver enzymes; likely related to chronic alcohol use; we will monitor liver enzymes 4. Chronic alcohol abuse/tobacco abuse; patient counseled on need for smoking and alcohol cessation 5. Hyperlipidemia; currently not on any statin therapy 6. Right apical lung nodule VTE prophylaxis; SCDs CODE STATUS; full code
[2023-11-09 08:28] LABS: Albumin 4.1 g/dL (3.5-5.0); Bilirubin, Delta 0.3 mg/dL (0.0-0.2); Bilirubin,Unconjugated 0.3 mg/dL (0.0-1.1); Total Bilirubin 0.6 mg/dL (0.2-1.3); Total Protein 7.1 g/dL (6.3-8.2)
--- NOTE | 2023-11-09 10:55 | P.PN ---
Subjective Progress Note Date: 11/09/23 Consult reason: chest pain History of present illness: This is a 43-year-old female with past medical history of tobacco use and dependence. We have been asked to evaluate the patient for chest pain. 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 Patient presented with blood pressure of 171/113. Patient was working and developed dizziness, chest pain and right arm and mostly in the right hand. She describes chest discomfort with sweats, nausea. No CP with DB. No CP now but feels tired and has GARCIA. She also has sweety and cold sensation. Smokes 1/2 PPD and 1 pint of alcohol per day and occasional marijuana use. Blood pressure 143/86, heart rate 84, pulse ox 99% on room air. She is status post 2 L of IV fluid, Nitrostat and Tylenol. She has been told she has HTN and elevated LFTs but has not followed up on these issues. EKG: Sinus rhythm CAT scan of the brain: No acute process CTA head and neck: No significant abnormality CTA chest: No pulmonary embolism. 8.2 mm right apical lung nodule and neoplasm not excluded. Laboratory studies: WBC 13.9, hemoglobin 13.4. D-dimer 0.65. Sodium 134, potassium 4.6, creatinine 0.5. AST 270, ALT 108, alkaline phosphatase 189. Troponin negative x 3. proBNP 388. Triglycerides 155, cholesterol 279, LDL 185, HDL 62. TSH 1.89. Urine drug screen was negative. Acetaminophen level less than 10. Home cardiac medications: None 11/08 Patient denies having any chest pain no shortness of breath. She denies any sensation in her right arm. Blood pressure 145/80, heart rate 89, pulse ox 94% on room air. She states she is walked in her room without any symptoms. Physical examination: Gen: This is a 43-year-old female in no acute distress VS: reviewed HEENT: Head is atraumatic, normocephalic. Pupils equal, round. Sclerae is anicteric. NECK: Supple. No JVD. LUNGS: Clear to auscultation. No wheezes or rhonchi. No intercostal retractions. HEART: Regular rate and rhythm. No murmur. + chest wall tenderness. ABDOMEN: Soft No tenderness. EXTREMITIES: No pedal edema. No calf tenderness. NEUROLOGICAL: Patient is awake, alert and oriented x3. Assessment: Atypical chest pain, acute coronary syndrome ruled out Elevated liver function test Hypertension Hyperlipidemia 8.2 mm right apical lung nodule Tobacco use and dependence Alcohol abuse Plan: Continue patient on losartan 25 mg daily Smoking cessation. Patient will be provided the [facility] quit line information at discharge. Alcohol cessation or reduction Monitor BP at home Patient is cleared for discharge from cardiology and may follow-up in the office in [address] Padron. Nurse practitioner note has been reviewed, I agree with documented findings and plan of care. Patient was seen and examined. Objective - Vital Signs Vital signs: Vital Signs Temp 98.4 F 11/09/23 08:05 Pulse 89 11/09/23 08:05 Resp 17 11/09/23 08:05 BP 145/80 11/09/23 08:05 Pulse Ox 94 L 11/09/23 08:05 FiO2 Intake & Output 11/08/23 11/09/23 11/09/23 18:59 06:59 18:59 Intake Total 236 1080 Balance 236 1080 Intake: Oral 236 1080 Other: Voiding Method Toilet Toilet # Voids 2 1 - Labs CBC & Chem 7: 11/08/23 07:50 11/08/23 07:50 Labs: Abnormal Lab Results - Last 24 Hours (Table) 11/08/23 11/08/23 11/08/23 Range/Units 07:50 07:50 10:38 RBC 3.94 L (4.10-5.20) X 10*6/uL MCV 99.5 H (80.0-97.0) FL MCH 32.7 H (27.0-32.0) pg MPV 12.8 H (9.5-12.2) FL Sodium 136 L (137-145) mmol/L BUN 6 L (7-17) mg/dL Creatinine 0.51 L (0.52-1.04) mg/dL Glucose 157 H (74-99) mg/dL Delta Bilirubin (0.0-0.2) mg/dL AST 160 H (14-36) U/L ALT 91 H (4-34) U/L Alkaline Phosphatase 153 H (38-126) U/L 11/09/23 Range/Units 07:43 RBC (4.10-5.20) X 10*6/uL MCV (80.0-97.0) FL MCH (27.0-32.0) pg MPV (9.5-12.2) FL Sodium (137-145) mmol/L BUN (7-17) mg/dL Creatinine (0.52-1.04) mg/dL Glucose (74-99) mg/dL Delta Bilirubin 0.3 H (0.0-0.2) mg/dL AST 219 H (14-36) U/L ALT 115 H (4-34) U/L Alkaline Phosphatase 158 H (38-126) U/L
--- NOTE | 2023-11-09 14:03 | US ---
EXAMINATION TYPE: US liver DATE OF EXAM: 11/09/2023 COMPARISON: NONE CLINICAL INDICATION: Female, 43 years old with history of Elevated liver enzymes; elevated lft's, sh[address] pain TECHNIQUE: Multiple sonographic images of the right upper quadrant are obtained. FINDINGS: EXAM MEASUREMENTS: Liver Length: 20.3 cm Gallbladder Wall: 0.3 cm CBD: 0.7 cm Right Kidney: 11.0 x 4.2 x 4.1cm Pancreas: wnl Liver: enlarged and difficult to penetrate compatible with mild fatty infiltration. Gallbladder: wnl Evidence for sonographic Small's sign: no CBD: wnl Right Kidney: wnl IMPRESSION: 1. Hepatomegaly.
[2023-11-09 15:05] LABS: Basophils # (A) 0.1 k/uL (0-0.2); Basophils % (A) 1 %; Eosinophils # (A) 0.3 k/uL (0-0.7); Eosinophils % (A) 3 %; HCT 42.9 % (34.0-46.0); Hypochromasia Slight; Lymphocytes # (A) 2.1 k/uL (1.0-4.8); Lymphocytes % (A) 22 %; MCH 33.2 pg (25.0-35.0); MCHC 32.6 g/dL (31.0-37.0); Macrocytosis Slight; Mean Platelet Volume 9.2; Monocytes # (A) 0.3 k/uL (0-1.0); Monocytes % (A) 3 %; Neutrophils % (A) 71 %; Platelet Count 299 k/uL (150-450); RBC 4.21 m/uL (3.80-5.40); RDW 13.8 % (11.5-15.5)
[2023-11-09 15:17] LABS: African American GFR (CKD) >90 (>60 ml/min/1.73 sqM); Anion Gap 6 mmol/L; Blood Urea Nitrogen 7 mg/dL (7-17); Calcium 9.3 mg/dL (8.4-10.2); Carbon Dioxide 23 mmol/L (22-30); Chloride 106 mmol/L (98-107); Glucose 178 mg/dL (74-99); Non-African American GFR(CKD) >90 (>60 ml/min/1.73 sqM); Potassium 4.2 mmol/L (3.5-5.1); Sodium 135 mmol/L (137-145)
--- NOTE | 2023-11-09 16:36 | P.PN ---
Subjective Progress Note Date: 11/09/23 43-year-old female with no significant past medical history presenting today for left-sided chest pain, dizziness with associated right upper extremity and right lower extremity pain and tingling. 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 This was followed by left-sided chest tightness that began radiating down her right arm. Initially had burning sensation going down right arm that progressed to a pins and needles sensation in the anterior right forearm. Also noted a similar sensation along the lateral aspect of her RLE. No new weakness, tingling does not encompass the entire extremity. Symptoms are improving. [place] somewhat short of breath, sweaty and nauseous during this episode. Patient is a current smoker and has been smoking since age of 14. Patient's father had a stroke at the age of 62. Patient has no history of ACS. No recent travel surgeries or hospitalizations. 2 weeks ago she did have an episode of hemoptysis. States she has headache however this is chronic for her and not new. Notes spots in her right eye that seems to come and go. 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 Blood work completed in ED reveals a WBC of 8.3, hemoglobin of 12.9 and platelet count of 283, sodium 136, potassium 4.5, BUNs/creatinine of 6/0.51 and blood glucose of 157, troponin less than 0.012, TSH of 1.890, AST/ALT elevated at 270/108 11/09/2023 Patient is seen and evaluated resting comfortably in bed; denies any further complaint of chest pain or shortness of breath Vital signs are reviewed and remained stable with blood pressure 145/80, heart rate 89 and O2 saturation 94% -Lab review shows a WBC of 10, hemoglobin of 14 and platelet count of 299, sodium 135, potassium 4.2, BUNs/creatinine of 7/0.53; liver enzymes continue to trend up with AST/ALT of 219/115 from 160/91 -We will plan to order hepatic ultrasound Patient has been evaluated by cardiology and is placed on losartan 25 mg daily; cardiology recommending discharge once stable and follow-up with Dr. Padron in 2 weeks in office Objective - Vital Signs Vital signs: Vital Signs Temp 98.4 F 11/09/23 08:05 Pulse 89 11/09/23 08:05 Resp 17 11/09/23 08:05 BP 145/80 11/09/23 08:05 Pulse Ox 94 L 11/09/23 08:05 FiO2 Intake & Output 11/08/23 11/09/23 11/09/23 18:59 06:59 18:59 Intake Total 236 1080 Balance 236 1080 Intake: Oral 236 1080 Other: Voiding Method Toilet Toilet Toilet # Voids 2 1 - Exam Gen: This is a 43-year-old female in no acute distress VS: reviewed HEENT: Head is atraumatic, normocephalic. Pupils equal, round. Sclerae is anicteric. NECK: Supple. No JVD. LUNGS: Clear to auscultation. No wheezes or rhonchi. No intercostal retractions. HEART: Regular rate and rhythm. No murmur. + chest wall tenderness. ABDOMEN: Soft No tenderness. EXTREMITIES: No pedal edema. No calf tenderness. NEUROLOGICAL: Patient is awake, alert and oriented x3. - Labs CBC & Chem 7: 11/09/23 14:45 11/09/23 14:45 Labs: Abnormal Lab Results - Last 24 Hours (Table) 11/08/23 11/08/23 11/09/23 Range/Units 07:50 10:38 07:43 RBC 3.94 L (4.10-5.20) X 10*6/uL MCV 99.5 H (80.0-97.0) FL MCH 32.7 H (27.0-32.0) pg MPV 12.8 H (9.5-12.2) FL Delta Bilirubin 0.3 H (0.0-0.2) mg/dL AST 160 H 219 H (14-36) U/L ALT 91 H 115 H (4-34) U/L Alkaline Phosphatase 153 H 158 H (38-126) U/L Assessment and Plan Assessment: 1. Chest pain rule out acute coronary syndrome -Patient is admitted to telemetry; will monitor EKG and cycle troponin; order 2D echo -Consult cardiology for further evaluation 2. Uncontrolled hypertension; patient has been evaluated by cardiology and is recommended to be placed on losartan 25 mg daily 3. Elevated liver enzymes; likely related to chronic alcohol use; we will monitor liver enzymes 4. Chronic alcohol abuse/tobacco abuse; patient counseled on need for smoking and alcohol cessation 5. Hyperlipidemia; currently not on any statin therapy 6. Right apical lung nodule VTE prophylaxis; SCDs CODE STATUS; full code
[2023-11-10 08:14] LABS: ALT 135 U/L (4-34); AST 234 U/L (14-36); African American GFR (CKD) >90 (>60 ml/min/1.73 sqM); Albumin 3.9 g/dL (3.5-5.0); Alkaline Phosphatase 153 U/L (38-126); Anion Gap 5 mmol/L; Bilirubin, Delta 0.2 mg/dL (0.0-0.2); Bilirubin,Unconjugated 0.3 mg/dL (0.0-1.1); Blood Urea Nitrogen 6 mg/dL (7-17); Calcium 9.5 mg/dL (8.4-10.2); Carbon Dioxide 25 mmol/L (22-30); Chloride 105 mmol/L (98-107); Glucose 108 mg/dL (74-99); Non-African American GFR(CKD) >90 (>60 ml/min/1.73 sqM); Potassium 4.8 mmol/L (3.5-5.1); Sodium 135 mmol/L (137-145); Total Bilirubin 0.5 mg/dL (0.2-1.3); Total Protein 6.9 g/dL (6.3-8.2)
[2023-11-10] MEDS: HYDROcodone/APAP 5-325MG 1 EACH TAB PO PRN (08:34)
--- NOTE | 2023-11-10 09:24 | P.PN ---
Subjective From the records 43-year-old female with no significant past medical history presenting today for left-sided chest pain, dizziness with associated right upper extremity and right lower extremity pain and tingling. 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 This was followed by left-sided chest tightness that began radiating down her right arm. Initially had burning sensation going down right arm that progressed to a pins and needles sensation in the anterior right forearm. Also noted a similar sensation along the lateral aspect of her RLE. No new weakness, tingling does not encompass the entire extremity. Symptoms are improving. [place] somewhat short of breath, sweaty and nauseous during this episode. Patient is a current smoker and has been smoking since age of 14. Patient's father had a stroke at the age of 62. Patient has no history of ACS. No recent travel surgeries or hospitalizations. 2 weeks ago she did have an episode of hemoptysis. States she has headache however this is chronic for her and not new. Notes spots in her right eye that seems to come and go. 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 Blood work completed in ED reveals a WBC of 8.3, hemoglobin of 12.9 and platelet count of 283, sodium 136, potassium 4.5, BUNs/creatinine of 6/0.51 and blood glucose of 157, troponin less than 0.012, TSH of 1.890, AST/ALT elevated at 270/108 9/2 This is a pleasant 43 years old female who presents because of multiple medical problems, as per patient she was at work when she started feeling little dizzy with chest pain and right arm also felt funny weak and numb like burning that lasted till late afternoon Patient was admitted to the hospital and evaluated by school inspector restart her losartan and cleared for discharge. Patient also has elevated liver enzymes with slightly worsening, AST 160 on admission currently 234 and ALT 91 currently 135. Total bilirubin is within the reference range at 0.5 Patient states that she drinks alcohol about 1 pint per day, last drink was prior to hospitalization. Also patient smokes cigarettes about half pack per day and she was counseled to quit and she is agrees currently has nicotine patch, she uses marijuana at times Currently patient has headache she woke up this morning about 7:00, feels foggy like all across her headache, nonradiating, she has some ear ringing on the left ear, she states she has this headache for 2 years Patient currently she does not have insurance and she does not follow-up with PCP Patient informed about her lung nodule and possibility of lung cancer and the need to repeat CT in 3 months and she is verbalized understanding and acceptance Hepatitis panel is still pending Liver ultrasound showing hepatomegaly with fatty liver possible CT of the chest showing right upper lobe lung nodule CT of the brain is negative for acute process CTA of the head and neck is negative for acute process either Urine drug screen is negative Acetaminophen less than 10 TSH is normal at 1.8 Lipase and amylase were negative Review of systems CONSTITUTIONAL: No fever, no malaise, no fatigue. HEENT: No recent visual problems or hearing problems. Denied any sore throat. CARDIOVASCULAR: No orthopnea, PND, no palpitations, no syncope. PULMONARY: No shortness of breath, no cough, no hemoptysis. GASTROINTESTINAL: No diarrhea, no nausea, no vomiting, no abdominal pain. Normoactive bowel sounds. NEUROLOGICAL: No headaches, no weakness, no numbness. HEMATOLOGICAL: Denies any bleeding or petechiae. GENITOURINARY: Denies any burning micturition, frequency, or urgency. MUSCULOSKELETAL/RHEUMATOLOGICAL: Denies any joint pain, swelling, or any muscle pain. ENDOCRINE: Denies any polyuria or polydipsia. Active Medications Generic Name Dose Route Start Last Admin Trade Name Freq PRN Reason Stop Dose Admin Hydrocodone Bitart/Acetaminophen 1 each 11/07/23 14:32 11/10/23 08:34 Hydrocodone/Apap 5-325mg 1 Each Tab PO 1 each Q6HR PRN Administration Moderate Pain (Scale 4 to 6) Al Hydroxide/Mg Hydroxide 15 ml 11/07/23 14:32 Mag Hydrox/Al Hydrox/Simeth 30 Ml Cup PO Q6HR PRN Indigestion Calcium Carbonate/Glycine 1,000 mg 11/07/23 14:32 Calcium Carbonate 500 Mg Chewable PO Q4HR PRN Dyspepsia Famotidine 20 mg 11/07/23 21:00 11/10/23 08:35 Famotidine 20 Mg Tab PO 20 mg BID LORIE Administration Losartan Potassium 25 mg 11/08/23 10:30 11/10/23 08:35 Losartan 25 Mg Tab PO 25 mg DAILY LORIE Administration Morphine Sulfate 4 mg 11/07/23 14:32 Morphine Sulfate 4 Mg/Ml Syringe IV Q4HR PRN Severe Pain (Scale 7 to 10) Naloxone HCl 0.2 mg 11/07/23 14:32 Naloxone 0.4 Mg/Ml 1 Ml Vial IV Q2M PRN Opioid Reversal Nicotine 1 patch 11/07/23 14:45 11/10/23 08:35 Nicotine 21mg/24hr Patch TRANSDERM 1 patch DAILY LORIE Administration Ondansetron HCl 4 mg 11/07/23 14:32 Ondansetron 4 Mg/2 Ml Vial IVP Q8HR PRN Nausea And Vomiting Objective - Vital Signs Vital signs: Vital Signs Temp 97.8 F 11/10/23 08:00 Pulse 81 11/10/23 08:00 Resp 17 11/10/23 08:00 BP 133/66 11/10/23 08:00 Pulse Ox 97 11/10/23 08:00 FiO2 Intake & Output 11/09/23 11/10/23 11/10/23 18:59 06:59 18:59 Intake Total 720 1080 Balance 720 1080 Intake: Oral 720 1080 Other: Voiding Method Toilet Toilet Toilet # Voids 1 1 - Exam GENERAL: The patient is alert and oriented x3, not in any acute distress. Well developed, well nourished. HEENT: Pupils are round and equally reacting to light. EOMI. No scleral icterus. No conjunctival pallor. Normocephalic, atraumatic. No pharyngeal erythema. No thyromegaly. CARDIOVASCULAR: S1 and S2 present. No murmurs, rubs, or gallops. PULMONARY: Chest is clear to auscultation, no wheezing , no crackles. ABDOMEN: Soft, nontender, nondistended, normoactive bowel sounds. No palpable organomegaly. MUSCULOSKELETAL: No joint swelling or deformity. EXTREMITIES: No cyanosis, clubbing, or pedal edema. NEUROLOGICAL: Gross neurological examination did not reveal any focal deficits. SKIN: No rashes. no petechiae. - Labs CBC & Chem 7: 11/09/23 14:45 11/10/23 07:19 Labs: Abnormal Lab Results - Last 24 Hours (Table) 11/09/23 11/09/23 11/10/23 Range/Units 14:45 14:45 07:19 MCV 102.0 H (80.0-100.0) fL Sodium 135 L 135 L (137-145) mmol/L BUN 6 L (7-17) mg/dL Creatinine 0.50 L (0.52-1.04) mg/dL Glucose 178 H 108 H (74-99) mg/dL AST 234 H (14-36) U/L ALT 135 H (4-34) U/L Alkaline Phosphatase 153 H (38-126) U/L Assessment and Plan Assessment: Ongoing headache with transient right upper extremity weakness and numbness which is resolved now Chest pain, resolved, cleared by school inspector Hypertension, started on losartan Alcohol use disorder, no significant signs symptoms of withdrawal Mild transaminitis, asymptomatic most likely secondary to alcohol effect. Hepatitis panel pending Right apical lung nodule, patient is aware and the need to close outpatient follow-up Nicotine dependence, patient counseled to quit and she agrees. Currently she is on nicotine patch Substance abuse with marijuana sometimes Plan: Continue monitoring liver enzymes, most likely secondary to alcohol effect, patient is asymptomatic, patient can follow-up as an outpatient Follow-up hepatitis panel Neurology consult given her headache and transient right arm weakness and numbness Patient was cleared for discharge by school inspector Will ask for pulmonary evaluation given her lung nodule and her symptom Patient was counseled to call her medical insurance provider to find a nearby PCP and follow-up in 1 week after discharge and she agrees No signs of alcohol withdrawal Continue with nicotine patch DVT prophylaxis, low risk as patient is mobile GI prophylaxis Pepcid
--- NOTE | 2023-11-10 13:40 | P.PN ---
Subjective Progress Note Date: 11/10/23 History of present illness: This is a 43-year-old female with past medical history of tobacco use and dependence. We have been asked to evaluate the patient for chest pain. Patient has no previous cardiac history and does not follow with a client technical specialist. Patient presented with blood pressure of 171/113. Patient was working and developed dizziness, chest pain and right arm and mostly in the right hand. She describes chest discomfort with sweats, nausea. No CP with DB. No CP now but feels tired and has GARCIA. She also has sweaty and cold sensation. Smokes 1/2 PPD and 1 pint of alcohol per day and occasional marijuana use. Blood pressure 143/86, heart rate 84, pulse ox 99% on room air. She is status post 2 L of IV fluid, Nitrostat and Tylenol. She has been told she has HTN and elevated LFTs but has not followed up on these issues. EKG: Sinus rhythm CAT scan of the brain: No acute process CTA head and neck: No significant abnormality CTA chest: No pulmonary embolism. 8.2 mm right apical lung nodule and neoplasm not excluded. Laboratory studies: WBC 13.9, hemoglobin 13.4. D-dimer 0.65. Sodium 134, potassium 4.6, creatinine 0.5. AST 270, ALT 108, alkaline phosphatase 189. Troponin negative x 3. proBNP 388. Triglycerides 155, cholesterol 279, LDL 185, HDL 62. TSH 1.89. Urine drug screen was negative. Acetaminophen level less than 10. Home cardiac medications: None 11/08 Patient denies having any chest pain no shortness of breath. She denies any sensation in her right arm. Blood pressure 145/80, heart rate 89, pulse ox 94% on room air. She states she is walked in her room without any symptoms. 11/10/23 Patient reports that she has been feeling fine. She denies any chest pain or pressure. No shortness of breath. She has been walking without issue. Physical examination: Gen: This is a 43-year-old female in no acute distress VS: reviewed HEENT: Head is atraumatic, normocephalic. Pupils equal, round. Sclerae is anicteric. NECK: Supple. No JVD. LUNGS: Clear to auscultation. No wheezes or rhonchi. No intercostal retractions. HEART: Regular rate and rhythm. No murmur. + chest wall tenderness. ABDOMEN: Soft No tenderness. EXTREMITIES: No pedal edema. No calf tenderness. NEUROLOGICAL: Patient is awake, alert and oriented x3. Assessment: Atypical chest pain, acute coronary syndrome ruled out Elevated liver function test Hypertension Hyperlipidemia 8.2 mm right apical lung nodule Tobacco use and dependence Alcohol abuse Plan: If patient is still in hospital tomorrow she would like to proceed with echo and stress echo while in the hospital. If she is discharged home today we will plan to do this in the outpatient setting. Continue patient on losartan 25 mg daily Smoking cessation. Patient will be provided the [employer] quit line information at discharge. Alcohol cessation or reduction advised Monitor BP at home Patient is cleared for discharge from cardiology and may follow-up in the office in [address] Padron. Nurse practitioner note has been reviewed, I agree with documented findings and plan of care. Patient was seen and examined. Objective - Vital Signs Vital signs: Vital Signs Temp 98.2 F 11/10/23 12:12 Pulse 84 11/10/23 12:12 Resp 17 11/10/23 12:12 BP 161/88 11/10/23 12:12 Pulse Ox 96 11/10/23 12:12 FiO2 Intake & Output 11/09/23 11/10/23 11/10/23 18:59 06:59 18:59 Intake Total 720 1080 Balance 720 1080 Intake: Oral 720 1080 Other: Voiding Method Toilet Toilet Toilet # Voids 1 1 - Labs CBC & Chem 7: 11/09/23 14:45 11/10/23 07:19 Labs: Abnormal Lab Results - Last 24 Hours (Table) 11/09/23 11/09/23 11/10/23 Range/Units 14:45 14:45 07:19 MCV 102.0 H (80.0-100.0) fL Sodium 135 L 135 L (137-145) mmol/L BUN 6 L (7-17) mg/dL Creatinine 0.50 L (0.52-1.04) mg/dL Glucose 178 H 108 H (74-99) mg/dL AST 234 H (14-36) U/L ALT 135 H (4-34) U/L Alkaline Phosphatase 153 H (38-126) U/L
[2023-11-10 17:05] LABS: Hepatitis A Antibody IgM Nonreactive (Nonreactive); Hepatitis B Surface Antigen Nonreactive (Nonreactive); Hepatitis C IgG Antibody Nonreactive (Nonreactive)
[2023-11-10] MEDS: ASPIRIN 81 MG PO STA (17:23)
--- NOTE | 2023-11-10 17:24 | P.CNNES ---
History of Present Illness Consult date: 11/10/23 Requesting physician: Micah E Sheet Reason for Consult: GARCIA, transient right arm weakness and numbness History of Present Illness: Patient is a 43-year-old right-handed female with history of hypertension, tobac co use, came to the hospital on 11/07/2023 at 11:07 AM for strokelike symptoms. Patient states that on the day of admission, she woke up in the morning as usual, and went to work at 7 AM. She was feeling fine. At around 10 or 10:30 AM she started feeling dizziness, which she describes as lightheadedness with some nausea and also developed numbness of the right arm with burning sensation from shoulder to the hand. She did not feel right. She noticed her right hand was twitching/spasming. She called a ride and was brought to the hospital. Patient states that while she was coming to the hospital, she also noticed her right leg also had similar symptoms, and also noticed some blurring of the vision of the inferior nasal quadrant of the right eye. She had no problem with balance. There was no slurred speech, facial droop. She just felt "out of it". Patient states that the numbness of the right arm lasted until the afternoon until it went away in few hours. Her symptoms in the right leg lasted also for couple hours whereas the visual symptoms lasted for an hour. The dizziness o ccurred off and on on the day of admission and that went away the next day. At present she feels back to normal. CT head revealed no acute intracranial process. I personally reviewed CT head, agree with the findings. Mild scattered paranasal sinus disease. CTA of head and neck revealed no significant abnormality. CTA of the chest revealed no evidence of pulmonary embolism. 8.2 cm right apical lung nodule and neoplasm is not excluded. 3-month CTA of the chest recommended to confirm stability. EKG showed sinus rhythm. Liver ultrasound revealed hepatomegaly otherwise normal. Blood test shows normal CBC with elevated MCV 102.0. Sodium 135 potassium is normal, renal functions are normal. AST 234, ALT 135. Urine drug screen negative. Lipase and amylase are normal TSH normal. Lipid panel with cholesterol 279, HDL 62, LDL 185 and triglycerides 155. Patient takes Excedrin as needed. Patient has smoked since age 14. She used to smoke a pack a day until last 1-1/2 years, when she cut back to half pack per day. She drinks 1 pint of vodka about 3 to 4 days a week for last 6 years. Smokes marijuana occasionally. No other drugs. Patient has history of hypertension but denies diabetes. Review of Systems All pertinent positive and negatives mentioned in the HPI, otherwise unremarkable. Past Medical History Past Medical History: No Reported History History of Any Multi-Drug Resistant Organisms: None Reported Past Surgical History: Tubal Ligation Past Psychological History: Anxiety Smoking Status: Current every day smoker Past Alcohol Use History: Daily Past Drug Use History: Marijuana Medications and Allergies Home Medications Medication Instructions Recorded Confirmed Type [id number] 0.5 tab PO Q4HR PRN 11/07/23 11/07/23 History [Excedrin] Allergies Allergy/AdvReac Type Severity Reaction Status Date / Time No Known Allergies Allergy Verified 11/07/23 12:19 Physical Examination - Vital Signs Vital Signs: Vital Signs Temp Pulse Resp BP Pulse Ox 11/10/23 14:00 84 17 11/10/23 12:12 98.2 F 84 17 161/88 96 11/10/23 08:00 97.8 F 81 17 133/66 97 11/10/23 02:00 78 16 144/92 94 L 11/09/23 20:00 99.1 F 90 16 154/102 96 Intake and Output 11/10/23 11/10/23 11/10/23 06:59 14:59 22:59 Intake Total 540 360 Balance 540 360 Intake: Oral 540 360 Other: Voiding Method Toilet Toilet # Voids 1 Patient is a middle aged female, very pleasant, in no acute distress. Patient is alert awake oriented to time place and person. Speech and language functions are normal. Patient can name and repeat very well. No aphasia or dysarthria. Attention, concentration and fund of knowledge is adequate. On cranial nerve examination, pupils at times appears slightly unequal, the right pupil appears slightly smaller than the left, but other times it looks equal on both sides. They are round and reactive to light. Her visual laurent are full on confrontation, with no neglect on double simultaneous stimulation. Extraocular muscles are intact with no nystagmus. Face is symmetric, tongue protrudes to the midline. Palatal elevation and sensation normal, hearing and shoulder shrug normal, facial sensation normal. On muscle strength testing, there is no pronator drift and the strength is normal in arms and legs distally and proximally. Deep tendon reflexes are symmetric 1 bilaterally and plantars downgoing. Sensory to touch is equal with no neglect on double simultaneous stimulation. Cerebellar function showed no ataxia for [id number] testing. No dysdiadochokinesia. No ataxia for [id number] testing on either side. Tone and bulk of muscles normal. Gait deferred.. On general examination, there is no carotid bruit or murmur, S1-S2 audible. Chest is clear on consultation. Abdomen is soft nontender. No organomegaly, bowel sounds present. Peripheral pulses are present. No peripheral edema. Results - Laboratory Findings CBC and BMP: 11/09/23 14:45 11/10/23 07:19 Abnormal Lab Findings: Abnormal Labs 11/06/23 11/07/23 11/07/23 12:51 12:51 12:51 WBC 13.9 H RBC MCV MCH MPV Neutrophils # 10.3 H D-Dimer 0.65 H Sodium BUN Creatinine Glucose Delta Bilirubin AST ALT Alkaline Phosphatase Triglycerides 155.00 H Cholesterol 279.00 H LDL Cholesterol, Calc 185.9 H HDL Cholesterol 62.10 H 11/07/23 11/08/23 11/08/23 12:51 07:50 07:50 WBC RBC 3.94 L MCV 99.5 H MCH 32.7 H MPV 12.8 H Neutrophils # D-Dimer Sodium 134 L 136 L BUN 6 L Creatinine 0.50 L 0.51 L Glucose 105 H 157 H Delta Bilirubin AST 270 H ALT 108 H Alkaline Phosphatase 189 H Triglycerides Cholesterol LDL Cholesterol, Calc HDL Cholesterol 11/08/23 11/09/23 11/09/23 10:38 07:43 14:45 WBC RBC MCV 102.0 H MCH MPV Neutrophils # D-Dimer Sodium BUN Creatinine Glucose Delta Bilirubin 0.3 H AST 160 H 219 H ALT 91 H 115 H Alkaline Phosphatase 153 H 158 H Triglycerides Cholesterol LDL Cholesterol, Calc HDL Cholesterol 11/09/23 11/10/23 14:45 07:19 WBC RBC MCV MCH MPV Neutrophils # D-Dimer Sodium 135 L 135 L BUN 6 L Creatinine 0.50 L Glucose 178 H 108 H Delta Bilirubin AST 234 H ALT 135 H Alkaline Phosphatase 153 H Triglycerides Cholesterol LDL Cholesterol, Calc HDL Cholesterol Assessment and Plan Assessment: * Probable TIA manifesting with numbness of right side of the body including right arm and leg, and some visual disturbance. Most of the symptoms lasted for couple hours and then resolved. At present patient has no neurological symptoms. Examination is nonfocal, with NIH stroke scale is 0. * Hypertension * Tobacco use * Alcoholism * Marijuana use * Right lung nodule Plan: * Patient had a probable TIA and the symptoms have completely resolved. Current NIH stroke scale is 0. Patient not a candidate for thrombolysis. * CTA of head and neck revealed no significant abnormality. * Agree with 2D echo, rule out embolic source * Hemoglobin A1c * Fasting lipid panel * Patient to be started on aspirin 324 mg stat and then 81 mg daily. * Recommend complete tobacco cessation. * Optimize control of blood pressure to normotensive level. * Telemetry monitoring, rule out arrhythmia. * Regarding pulmonary nodule, we will defer to IM. * Neurology will follow. Thank you for the consult.
[2023-11-10 19:23] LABS: Hepatitis B Core IgM Nonreactive (Nonreactive)
--- NOTE | 2023-11-11 02:57 | P.CNPUL ---
History of Present Illness Consult date: 11/11/23 Requesting physician: Micah E Sheet Reason for consult: other (Pulmonary nodule) Chief complaint: Right-sided arm/leg numbness and tingling History of present illness: Patient is a 43-year-old female with past medical history significant for migraines, alcoholism, chronic ongoing tobacco dependence. She presented to emergency department originally on 11/08/2023. While at work, she was feeling dizzy. This was followed by chest tightness. She had some right arm and leg numbness/tingling. Brief episode of nausea and diaphoresis. States transient lost peripheral vision. Denies headaches. Denies recent falls or trauma. Brain CT without contrast does not show any acute intracranial process. No intraparenchymal hemorrhage or mass effect. Brain CTA does not show any significant flow limiting stenosis, aneurysm, or vascular malformation of the head/neck. Neurology is evaluating the patient. Denies current symptoms. TIA is in the differential. Incidentally, patient was found to have a 8.2 cm right apical lung nodule on chest CTA. No evidence of PE. No prior imaging available for comparison. Patient does have significant smoking history, started smoking at age 14, 1.5 pack/day until the last few months. No documented history of COPD. Denies change in chronic cough. Denies hemoptysis or chest pain. Denies unexplained weight loss. Denies personal history of cancer. Unsure if familial history of cancer. 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 Denies recent t ravel or pulmonary infections. Denies autoimmune diseases. CBC unremarkable. Most recent CMP: Sodium 135, potassium 4.8, chloride 105, serum bicarb 25, BUN 6, creatinine 0.5, glucose 108. LFTs mildly elevated. Patient does have history of alcohol abuse. Consumes 1 pint liquor per day on most days. Hepatitis panel nonreactive. Liver ultrasound demonstrating hepatomegaly. Urine drug screen negative. Troponin 0.012. NT proBNP 388. EKG showing normal sinus rhythm without any obvious acute ischemic changes. Patient is currently sitting up in bed. She is on room air. SpO2 98%. Afebrile. Remaining vital signs are stable. Review of Systems REVIEW OF SYSTEMS: CONSTITUTIONAL: Denies fevers, night sweats, weight loss/gain EYES: See HPI, vision is back to baseline. Initial peripheral vision loss of the right eye, medial involvement. Now resolved. EARS, NOSE, MOUTH, THROAT: Denies headaches, denies sore throat. CARDIOVASCULAR: Denies palpitations, lightheadedness, or syncopal episodes. RESPIRATORY: See HPI GASTROINTESTINAL: Denies change in appetite, abdominal pain, nausea and vomiting, or diarrhea GENITOURINARY: Denies hematuria, denies infections. MUSKULOSKELETAL: Denies pain, denies swelling. INTEGUMENTARY: Denies rash, denies eczema. NEUROLOGICAL: Denies recent memory loss, no recent seizure activity. PSYCHIATRIC: Denies anxiety, denies depression. HEMATOLOGIC/LYMPHATIC: Denies anemia, denies enlarged lymph node Past Medical History Past Medical History: No Reported History History of Any Multi-Drug Resistant Organisms: None Reported Past Surgical History: Tubal Ligation Past Psychological History: Anxiety Smoking Status: Current every day smoker Past Alcohol Use History: Daily Past Drug Use History: Marijuana Medications and Allergies Home Medications Medication Instructions Recorded Confirmed Type [id number] 0.5 tab PO Q4HR PRN 11/07/23 11/07/23 History [Excedrin] Allergies Allergy/AdvReac Type Severity Reaction Status Date / Time No Known Allergies Allergy Verified 11/07/23 12:19 Physical Exam Vitals: Vital Signs Temp Pulse Resp BP Pulse Ox 11/11/23 00:42 97.9 F 70 17 150/96 98 11/10/23 20:14 71 16 135/87 97 11/10/23 16:10 98.2 F 87 17 155/98 98 11/10/23 14:00 84 17 11/10/23 12:12 98.2 F 84 17 161/88 96 11/10/23 08:00 97.8 F 81 17 133/66 97 Intake and Output 11/10/23 11/10/23 11/11/23 14:59 22:59 06:59 Intake Total 360 Balance 360 Intake: Oral 360 Other: Voiding Method Toilet Toilet # Voids 2 GENERAL EXAM: Alert, 43-year-old female, comfortable in no apparent distress. HEAD: Normocephalic and atraumatic EYES: Normal reaction of pupils, equal size. Conjugate gaze. No nystagmus. NOSE: Clear with pink turbinates. THROAT: No erythema or exudates. NECK: No masses, no JVD. CHEST: No chest wall deformity. LUNGS: Equal air entry with no crackles, wheeze, rhonchi or dullness. On room air. No conversational dyspnea or accessory muscle use.. CVS: S1 and S2 normal with no audible murmur, regular rhythm. No extra heart sounds ABDOMEN: No hepatosplenomegaly, active bowel sounds, no guarding or rigidity. SPINE: No scoliosis or deformity SKIN: No rashes CENTRAL NERVOUS SYSTEM: Cranial nerves II through XII intact. No focal deficits. Strength 5/5 in all extremities. No ataxia. Gait assessment deferred. Patellar DTRs 2+ bilaterally. EXTREMITIES: There is no peripheral edema, clubbing, or cyanosis. Peripheral pulses are intact. Results - Laboratory Findings CBC and BMP: 11/09/23 14:45 11/10/23 07:19 PT/INR, D-dimer PT 10.7 sec (10.0-12.5) 11/07/23 12:51 INR 1.0 (<1.2) 11/07/23 12:51 D-Dimer 0.65 mg/L FEU (<0.60) H 11/07/23 12:51 Abnormal lab findings: Abnormal Labs 11/06/23 11/07/23 11/07/23 12:51 12:51 12:51 WBC 13.9 H RBC MCV MCH MPV Neutrophils # 10.3 H D-Dimer 0.65 H Sodium BUN Creatinine Glucose Delta Bilirubin AST ALT Alkaline Phosphatase Triglycerides 155.00 H Cholesterol 279.00 H LDL Cholesterol, Calc 185.9 H HDL Cholesterol 62.10 H 11/07/23 11/08/23 11/08/23 12:51 07:50 07:50 WBC RBC 3.94 L MCV 99.5 H MCH 32.7 H MPV 12.8 H Neutrophils # D-Dimer Sodium 134 L 136 L BUN 6 L Creatinine 0.50 L 0.51 L Glucose 105 H 157 H Delta Bilirubin AST 270 H ALT 108 H Alkaline Phosphatase 189 H Triglycerides Cholesterol LDL Cholesterol, Calc HDL Cholesterol 11/08/23 11/09/23 11/09/23 10:38 07:43 14:45 WBC RBC MCV 102.0 H MCH MPV Neutrophils # D-Dimer Sodium BUN Creatinine Glucose Delta Bilirubin 0.3 H AST 160 H 219 H ALT 91 H 115 H Alkaline Phosphatase 153 H 158 H Triglycerides Cholesterol LDL Cholesterol, Calc HDL Cholesterol 11/09/23 11/10/23 14:45 07:19 WBC RBC MCV MCH MPV Neutrophils # D-Dimer Sodium 135 L 135 L BUN 6 L Creatinine 0.50 L Glucose 178 H 108 H Delta Bilirubin AST 234 H ALT 135 H Alkaline Phosphatase 153 H Triglycerides Cholesterol LDL Cholesterol, Calc HDL Cholesterol - Diagnostic Findings CT scan - chest: image reviewed Assessment and Plan Assessment: Right upper lobe, apical solitary pulmonary nodule, measuring 8.2 mm. Chronic ongoing tobacco dependence, recently cutting back to 1/2 pack/day, with over [id number] history Possible TIA, neurologic symptoms have spontaneously resolved in less than [address] without contrast does not show any intraparenchymal hemorrhage or mass effect. Brain CTA does not show any significant stenosis, aneurysm, or vascular malformations within the head/neck. Neurology is following. Atypical chest pain, resolved, ACS felt to be unlikely Hyperlipidemia Hypertension Alcoholism, reportedly drinks 1 pint of liquor per day most days of the week Elevated liver enzymes, likely secondary to above; hepatitis panel nonreactive, liver ultrasound showing hepatomegaly Recreational marijuana use Plan: Right upper lobe apical solitary pulmonary nodule measuring 8.2 millimeters No prior imaging available for comparison. Neoplasm cannot be excluded Recommendation is for short-term follow-up with chest CT in 3 months Discussed with patient at length. Smoking cessation counseling performed, greater than 10 minutes Nicotine replacement offered Neurology is following patient High-dose statin, deferred at the moment as patient has elevated LFTs. Started on ASA Follow-up echocardiogram pending Monitor CIWA, no acute signs of withdrawal at this time Case will be further discussed with Dr. Goodwin this morning. I have personally seen and examined the patient, performed the documentation and the assessment and plan as written. Number of minutes spent on the visit:20 This is a joint evaluation that was done along with the nurse practitioner. I was consulted on the patient regarding a right upper lobe pulmonary nodule. I reviewed the CAT scan images and the patient has an 8 mm right apical pulmonary nodule which could be potentially a scar. She is a chronic smoker and this needs to be further followed up. Meanwhile, the patient was having some atypical chest pain and neurologic symptoms that spontaneously resolved. CAT scan of the brain was negative. CT of the brain showed no acute abnormalities and awaiting further recommendations from neurology. Discussed findings with the patient the patient will need a follow-up CAT scan of the chest in 3 to 6 months time. This can be arranged on outpatient basis. Meanwhile, the patient is awaiting an echocardiogram. The patient is currently on aspirin. Time with Patient: Greater than 30
[2023-11-11] MEDS: ASPIRIN 81 MG PO SCH (08:45)
[2023-11-11 09:33] LABS: ALT 183 U/L (4-34); AST 346 U/L (14-36); Albumin 4.1 g/dL (3.5-5.0); Alkaline Phosphatase 156 U/L (38-126); Bilirubin, Delta 0.3 mg/dL (0.0-0.2); Bilirubin,Unconjugated 0.3 mg/dL (0.0-1.1); Total Bilirubin 0.6 mg/dL (0.2-1.3); Total Protein 7.1 g/dL (6.3-8.2)
--- NOTE | 2023-11-11 11:42 | P.PN ---
Subjective From the records 43-year-old female with no significant past medical history presenting today for left-sided chest pain, dizziness with associated right upper extremity and right lower extremity pain and tingling. 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 This was followed by left-sided chest tightness that began radiating down her right arm. Initially had burning sensation going down right arm that progressed to a pins and needles sensation in the anterior right forearm. Also noted a similar sensation along the lateral aspect of her RLE. No new weakness, tingling does not encompass the entire extremity. Symptoms are improving. [place] somewhat short of breath, sweaty and nauseous during this episode. Patient is a current smoker and has been smoking since age of 14. Patient's father had a stroke at the age of 62. Patient has no history of ACS. No recent travel surgeries or hospitalizations. 2 weeks ago she did have an episode of hemoptysis. States she has headache however this is chronic for her and not new. Notes spots in her right eye that seems to come and go. 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 Blood work completed in ED reveals a WBC of 8.3, hemoglobin of 12.9 and platelet count of 283, sodium 136, potassium 4.5, BUNs/creatinine of 6/0.51 and blood glucose of 157, troponin less than 0.012, TSH of 1.890, AST/ALT elevated at 270/108 9/2 This is a pleasant 43 years old female who presents because of multiple medical problems, as per patient she was at work when she started feeling little dizzy with chest pain and right arm also felt funny weak and numb like burning that lasted till late afternoon Patient was admitted to the hospital and evaluated by companion restart her losartan and cleared for discharge. Patient also has elevated liver enzymes with slightly worsening, AST 160 on admission currently 234 and ALT 91 currently 135. Total bilirubin is within the reference range at 0.5 Patient states that she drinks alcohol about 1 pint per day, last drink was prior to hospitalization. Also patient smokes cigarettes about half pack per day and she was counseled to quit and she is agrees currently has nicotine patch, she uses marijuana at times Currently patient has headache she woke up this morning about 7:00, feels foggy like all across her headache, nonradiating, she has some ear ringing on the left ear, she states she has this headache for 2 years Patient currently she does not have insurance and she does not follow-up with PCP Patient informed about her lung nodule and possibility of lung cancer and the need to repeat CT in 3 months and she is verbalized understanding and acceptance Hepatitis panel is still pending Liver ultrasound showing hepatomegaly with fatty liver possible CT of the chest showing right upper lobe lung nodule CT of the brain is negative for acute process CTA of the head and neck is negative for acute process either Urine drug screen is negative Acetaminophen less than 10 TSH is normal at 1.8 Lipase and amylase were negative 11/10 Patient overall feels fine with no chest pain no abdominal pain or vomiting. However her liver enzymes still trending up, liver ultrasound was negative. Patient is alcoholic and she still drinking alcohol however AST and ALT are jin nding up. Liver ultrasound was unremarkable. Hepatitis panel is pending. We will order hepatic Doppler to rule out portal venous thrombosis. Also wished to switch her to losartan 25 mg which was started in the hospital to Coreg as this sometimes can cause liver enzymes elevation Also patient going for stress test Echocardiogram is pending Neurologist evaluated the patient and started on aspirin 81 mg for TIA She has pulmonary nodule and she can follow-up with pattern vault clerk as an outpatient munitions worker will have the patient apply for insurance Review of systems CONSTITUTIONAL: No fever, no malaise, no fatigue. HEENT: No recent visual problems or hearing problems. Denied any sore throat. CARDIOVASCULAR: No orthopnea, PND, no palpitations, no syncope. PULMONARY: No shortness of breath, no cough, no hemoptysis. GASTROINTESTINAL: No diarrhea, no nausea, no vomiting, no abdominal pain. Normoactive bowel sounds. NEUROLOGICAL: No headaches, no weakness, no numbness. HEMATOLOGICAL: Denies any bleeding or petechiae. GENITOURINARY: Denies any burning micturition, frequency, or urgency. MUSCULOSKELETAL/RHEUMATOLOGICAL: Denies any joint pain, swelling, or any muscle pain. ENDOCRINE: Denies any polyuria or polydipsia. Active Medications Generic Name Dose Route Start Last Admin Trade Name Freq PRN Reason Stop Dose Admin Hydrocodone Bitart/Acetaminophen 1 each 11/07/23 14:32 11/10/23 08:34 Hydrocodone/Apap 5-325mg 1 Each Tab PO 1 each Q6HR PRN Administration Moderate Pain (Scale 4 to 6) Al Hydroxide/Mg Hydroxide 15 ml 11/07/23 14:32 Mag Hydrox/Al Hydrox/Simeth 30 Ml Cup PO Q6HR PRN Indigestion Aspirin 81 mg 11/11/23 09:00 11/11/23 08:45 Aspirin 81 Mg PO 81 mg DAILY LORIE Administration Calcium Carbonate/Glycine 1,000 mg 11/07/23 14:32 Calcium Carbonate 500 Mg Chewable PO Q4HR PRN Dyspepsia Carvedilol 3.125 mg 11/11/23 17:30 Carvedilol 3.125 Mg Tab PO BID-W/MEALS LORIE Famotidine 20 mg 11/07/23 21:00 11/11/23 08:45 Famotidine 20 Mg Tab PO 20 mg BID LORIE Administration Morphine Sulfate 4 mg 11/07/23 14:32 Morphine Sulfate 4 Mg/Ml Syringe IV Q4HR PRN Severe Pain (Scale 7 to 10) Naloxone HCl 0.2 mg 11/07/23 14:32 Naloxone 0.4 Mg/Ml 1 Ml Vial IV Q2M PRN Opioid Reversal Nicotine 1 patch 11/07/23 14:45 11/10/23 08:35 Nicotine 21mg/24hr Patch TRANSDERM 1 patch DAILY LORIE Administration Ondansetron HCl 4 mg 11/07/23 14:32 Ondansetron 4 Mg/2 Ml Vial IVP Q8HR PRN Nausea And Vomiting Objective - Vital Signs Vital signs: Vital Signs Temp 98.1 F 11/11/23 08:00 Pulse 80 11/11/23 08:00 Resp 16 11/11/23 08:00 BP 136/80 11/11/23 08:00 Pulse Ox 96 11/11/23 03:40 FiO2 Intake & Output 11/10/23 11/11/23 11/11/23 18:59 06:59 18:59 Intake Total 360 Balance 360 Weight 73.8 kg Intake: Oral 360 Other: Voiding Method Toilet Toilet Toilet # Voids 2 - Exam GENERAL: The patient is alert and oriented x3, not in any acute distress. Well developed, well nourished. HEENT: Pupils are round and equally reacting to light. EOMI. No scleral icterus. No conjunctival pallor. Normocephalic, atraumatic. No pharyngeal erythema. No thyromegaly. CARDIOVASCULAR: S1 and S2 present. No murmurs, rubs, or gallops. PULMONARY: Chest is clear to auscultation, no wheezing , no crackles. ABDOMEN: Soft, nontender, nondistended, normoactive bowel sounds. No palpable organomegaly. MUSCULOSKELETAL: No joint swelling or deformity. EXTREMITIES: No cyanosis, clubbing, or pedal edema. NEUROLOGICAL: Gross neurological examination did not reveal any focal deficits. SKIN: No rashes. no petechiae. - Labs CBC & Chem 7: 11/09/23 14:45 11/10/23 07:19 Labs: Abnormal Lab Results - Last 24 Hours (Table) 11/11/23 Range/Units 08:35 Delta Bilirubin 0.3 H (0.0-0.2) mg/dL AST 346 H (14-36) U/L ALT 183 H (4-34) U/L Alkaline Phosphatase 156 H (38-126) U/L Assessment and Plan Assessment: Ongoing headache with transient right upper extremity weakness and numbness which is resolved now Chest pain, resolved, cleared by companion Hypertension, started on losartan Alcohol use disorder, no significant signs symptoms of withdrawal Mild transaminitis, asymptomatic most likely secondary to alcohol effect. Hepatitis panel pending Right apical lung nodule, patient is aware and the need to close outpatient follow-up Nicotine dependence, patient counseled to quit and she agrees. Currently she is on nicotine patch Substance abuse with marijuana sometimes Plan: Continue monitoring liver enzymes, most likely secondary to alcohol effect, patient is asymptomatic, patient can follow-up as an outpatient Follow-up hepatitis panel Change losartan to Coreg 3.125 Check venous Doppler No GI coverage in this facility this week Neurology consult given her headache and transient right arm weakness and numbness Medical Technician Assistant on the case, patient going for stress test today Follow-up with pulmonary as an outpatient for lung nodule Patient was counseled to call her medical insurance provider to find a nearby PCP and follow-up in 1 week after discharge and she agrees No signs of alcohol withdrawal Continue with nicotine patch DVT prophylaxis, low risk as patient is mobile GI prophylaxis Pepcid
--- NOTE | 2023-11-11 13:03 | P.PN ---
Subjective HISTORY OF PRESENT ILLNESS: This is a 43-year-old female with past medical history of tobacco use and dependence. We have been asked to evaluate the patient for chest pain. Patient has no previous cardiac history and does not follow with a carpenter mate. Patient presented with blood pressure of 171/113. Patient was working and developed dizziness, chest pain and right arm and mostly in the right hand. She describes chest discomfort with sweats, nausea. No CP with DB. No CP now but feels tired and has GARCIA. She also has sweaty and cold sensation. Smokes 1/2 PPD and 1 pint of alcohol per day and occasional marijuana use. Blood pressure 143 /86, heart rate 84, pulse ox 99% on room air. She is status post 2 L of IV fluid, Nitrostat and Tylenol. She has been told she has HTN and elevated LFTs but has not followed up on these issues. EKG: Sinus rhythm CAT scan of the brain: No acute process CTA head and neck: No significant abnormality CTA chest: No pulmonary embolism. 8.2 mm right apical lung nodule and neoplasm not excluded. Laboratory studies: WBC 13.9, hemoglobin 13.4. D-dimer 0.65. Sodium 134, potassium 4.6, creatinine 0.5. AST 270, ALT 108, alkaline phosphatase 189. Troponin negative x 3. proBNP 388. Triglycerides 155, cholesterol 279, LDL 185, HDL 62. TSH 1.89. Urine drug screen was negative. Acetaminophen level less than 10. Home cardiac medications: None 11/08 Patient denies having any chest pain no shortness of breath. She denies any sensation in her right arm. Blood pressure 145/80, heart rate 89, pulse ox 94% on room air. She states she is walked in her room without any symptoms. 11/10/23 Patient reports that she has been feeling fine. She denies any chest pain or pressure. No shortness of breath. She has been walking without issue. November 11, 2023 Patient examined this morning at the bedside. Patient currently denies chest pain or pressure. She denies shortness of breath. PHYSICAL EXAM: VITAL SIGNS: Reviewed. GENERAL: Well-developed in no acute distress. NECK: Supple. No JVD or thyromegaly LUNGS: Respirations even and unlabored. Lungs essentially clear to auscultation bilaterally. HEART: Regular rate and rhythm. S1 and S2 heard. EXTREMITIES: Normal range of motion. No clubbing or cyanosis. Peripheral pulses intact. No lower extremity edema ASSESSMENT: Atypical chest pain, acute coronary syndrome ruled out Elevated liver function test Hypertension Hyperlipidemia 8.2 mm right apical lung nodule Tobacco use and dependence Alcohol abuse PLAN: Patient was started on losartan during hospitalization for hypertension. From a cardiac standpoint would recommend patient be continued on losartan. However this was discontinued per primary medicine this morning patient was started on Coreg. Will defer further hypertensive regimen to primary medicine. Patient to undergo stress echocardiogram today If negative, she may be discharged home from a cardiac standpoint Nurse practitioner note has been reviewed by physician. Signing provider agrees with the documented findings, assessment, and plan of care documented by HEAVY DUTY CUSTODIAN as a scribe. Objective - Vital Signs Vital signs: Vital Signs Temp 98.1 F 11/11/23 08:00 Pulse 80 11/11/23 08:00 Resp 16 11/11/23 08:00 BP 136/80 11/11/23 08:00 Pulse Ox 96 11/11/23 03:40 FiO2 Intake & Output 11/10/23 11/11/23 11/11/23 18:59 06:59 18:59 Intake Total 360 Balance 360 Weight 73.8 kg Intake: Oral 360 Other: Voiding Method Toilet Toilet Toilet # Voids 2 - Labs CBC & Chem 7: 11/09/23 14:45 11/10/23 07:19 Labs: Abnormal Lab Results - Last 24 Hours (Table) 11/11/23 Range/Units 08:35 Delta Bilirubin 0.3 H (0.0-0.2) mg/dL AST 346 H (14-36) U/L ALT 183 H (4-34) U/L Alkaline Phosphatase 156 H (38-126) U/L
--- NOTE | 2023-11-11 14:36 | US ---
EXAMINATION TYPE: US portal vein DATE OF EXAM: 11/11/2023 COMPARISON: US 2 days ago CLINICAL INDICATION: Female, 43 years old with history of r/o venous thrombosis of portal symptom; EXAM MEASUREMENTS: Liver Length: 19.8cm Gallbladder Wall: 0.2cm CBD: 0.5cm Right Kidney: 10.5 x 4.1 x 5.3cm ANATOMY: scan of pancreas, liver, GB, CBD and right kidney done 2 days prior - limited evaluation of those o rgans on today's exam Pancreas: wnl Liver: enlarged, attenuating, mildly heterogeneous Color flow patency within the portal vein: yes Portal Vein Flow: hepatopetal Gallbladder: wnl Evidence for sonographic Small's sign: no CBD: wnl Right Kidney: wnl IMPRESSION: Nonspecific pattern the liver can be associated with underlying hepatocellular disease or hepatic steatosis. Portal vein is patent. Portal vein demonstrates hepatopedal flow.
[2023-11-11 17:05] LABS: Chol/HDL Ratio 5.03 Ratio; LDL Cholesterol,Calculated 188.9 mg/dL (0.0-131.0)
[2023-11-11] MEDS: carvediloL 3.125 MG TAB PO SCH (17:08)
[2023-11-11] MEDS: ATORVASTATIN 80 MG TAB PO SCH (20:08)
[2023-11-11] MEDS: CLOPIDOGREL 75 MG TAB PO SCH (20:08)
--- NOTE | 2023-11-12 07:24 | CA ---
Stress Echo Report Subhash Noguera Age: 43 Gender: F : 1980 Exam Date: 11/11/2023 12:24 Exam Location: [place] [facility] Ht (in): 64 Wt (lb): 162 Ordering Physician: Elida Edward Referring Physician: MECHELLE,, Dehairer: Kamille Persaud RDCS Technologist Procedure CPT: Indication: Chest Pain ICD-9 Codes: Rhythm: Patient History: CHEST PAIN, PALPITATIONS, NUMBNESS IN FACE/NECK HX OF TIA, FAMILY HX OF HEART DISEASE, CURRENT SMOKER 0.5 PPD X 30 YEARS Cardiac Medications: Medications in past 24 hours: Contrast: Stress Results Protocol: Fantasma Total dose(mL): Exercise Duration (min:sec): 9:[address] Depression (mm): Angina Score: Sosa Score: METS: 10.5 Resting HR: 91 Resting BP: 155 / 98 Peak HR: 168 Peak BP: 189 / 94 Max Predicted HR: 176 95 % Max Predicted HR Target HR: 150 Double Product: [id number] Stress Summary: BP Response: Reason for Termination: MAX EXERTION/TARGET HR Cardiac Symptoms: FATIGUE ECG Analysis Resting ECG: Stress ECG: Arrhythmia: Echo Analysis Resting Echo: Peak Echo Analysis: MEASUREMENTS (Male/Female) Normal Values CONCLUSIONS Baseline EKG revealed normal sinus rhythm with LVH by voltage criteria. Patient walked on a standard Fantasma protocol for a total duration of 9 minutes and achieved a maximal heart rate of 168 bpm. She developed fatigue and shortness of breath. There was no significant arrhythmia. There were no ST segment changes to indicate ischemia. Baseline echo images revealed mild global decrease in contractility estimate ejection fraction of about 40%. At peak exercise there was improvement in the contractility noted in all segments suggesting that there is no evidence of stress-induced ischemia on the study. Patient probably has a nonischemic cardiomyopathy type picture. All segments demonstrate improved contractility at peak exercise but the resting ejection fraction suggest a global decrease in contractility. Final impression: #1 fair exercise capacity with negative stress test by EKG criteria #2 probable underlying nonischemic cardiomyopathy without evidence of ischemia on the stress echocardiogram Dr. Dahlia Chang MD (Electronically Signed) Final Date: 12 November 2023 07:23
--- NOTE | 2023-11-12 07:29 | CA ---
Transthoracic Echo Report Name: Subhash Noguera Age: 43 Gender: F : 1980 Exam Date: 11/11/2023 12:55 Exam Location: [place] [facility] Ht (in): 64 Wt (lb): 162 Ordering Physician: Elida Edward Attending/Referring Phys: Iron Miner Kamille Persaud RDCS Procedure CPT: Indications: Chest Pain Cardiac Hx: Technical Quality: Good Contrast 1: Total Dose (mL): Contrast 2: Total Dose (mL): MEASUREMENTS (Male / Female) Normal Values 2D ECHO LV Diastolic Diameter PLAX 5.4 cm 4.2 - 5.9 / 3.9 - 5.3 cm LV Systolic Diameter PLAX 4.6 cm IVS Diastolic Thickness 1.0 cm 0.6 - 1.0 / 0.6 - 0.9 cm LVPW Diastolic Thickness 0.9 cm 0.6 - 1.0 / 0.6 - 0.9 cm LV Relative Wall Thickness 0.3 LVOT Diameter 1.9 cm Aortic Root Diameter 2.8 cm LV Diastolic Volume MOD BP 170.9 cm??? 67 - 155 / 56 - 104 cm??? LV Systolic Volume MOD BP 119.1 cm??? 22 - 58 / 19 - 49 cm??? LV Ejection Fraction MOD BP 30.3 % >= 55 % LV Cardiac Index MOD BP 2814.8 cm???/min???m??? LV Diastolic Volume MOD 4C 163.3 cm??? LV Systolic Volume MOD 4C 109.1 cm??? LV Ejection Fraction MOD 4C 33.2 % LV Cardiac Index MOD 4C 2941.8 cm???/min???m??? LV Diastolic Length 4C 9.4 cm LV Systolic Length 4C 7.8 cm LV Diastolic Volume MOD 2C 171.4 cm??? LV Systolic Volume MOD 2C 113.1 cm??? LV Ejection Fraction MOD 2C 34.1 % LV Cardiac Index MOD 2C 3171.5 cm???/min???m??? LV Diastolic Length 2C 9.8 cm LV Systolic Length 2C 9.0 cm Ascending Aorta Diameter 2.8 cm DOPPLER AV Peak Velocity 167.5 cm/s AV Peak Gradient 11.2 mmHg AV Mean Velocity 118.2 cm/s AV Mean Gradient 6.2 mmHg AV Velocity Time Integral 21.7 cm LVOT Peak Velocity 103.9 cm/s LVOT Peak Gradient 4.3 mmHg LVOT Velocity Time Integral 15.2 cm LVOT Stroke Volume 41.4 cm??? LVOT Stroke Volume Index 23.2 ml/m??? LVOT Cardiac Index 2249.9 cm???/min???m??? AV Area Cont Eq vti 1.9 cm??? AV Area Cont Eq pk 1.7 cm??? PV Peak Velocity 163.8 cm/s PV Peak Gradient 10.7 mmHg FINDINGS Left Ventricle Left ventricular ejection fraction is estimated at 35-40 %. Mildly increased septal wall thickness. Mildly increased left ventricular diastolic diameter. Severely increased left ventricular diastolic volume. Severely increased left ventricular systolic volume. Moderately decreased left ventricular ejection fraction. Right Ventricle Normal right ventricular size and function. Unable to estimate the right ventricular systolic pressure. Right Atrium Normal right atrial size. Left Atrium Normal left atrial size. Mitral Valve Structurally normal mitral valve. No evidence for mitral valve prolapse. No mitral stenosis. Trace mitral regurgitation. Aortic Valve Trileaflet aortic valve. No aortic valve stenosis or regurgitation. Tricuspid Valve Structurally normal tricuspid valve. No tricuspid stenosis. No tricuspid regurgitation. Pulmonic Valve Pulmonic valve not well visualized. No pulmonic stenosis. No pulmonic regurgitation. Pericardium No pericardial effusion. Aorta Normal size aortic root and proximal ascending aorta. CONCLUSIONS LV size is normal. There is global decrease in contractility. Estimate ejection fraction is about 40%. Mild mitral and tricuspid regurgitation no pericardial effusion. Right-sided pressures are not well quantified Previewed by: Dr. Dahlia Chang MD (Electronically Signed) Final Date: 12 November 2023 07:28
[2023-11-12 08:28] LABS: ALT 215 U/L (4-34); AST 332 U/L (14-36); African American GFR (CKD) >90 (>60 ml/min/1.73 sqM); Albumin 4.2 g/dL (3.5-5.0); Alkaline Phosphatase 150 U/L (38-126); Anion Gap 8 mmol/L; Blood Urea Nitrogen 10 mg/dL (7-17); Carbon Dioxide 23 mmol/L (22-30); Chloride 103 mmol/L (98-107); Glucose 124 mg/dL (74-99); Non-African American GFR(CKD) >90 (>60 ml/min/1.73 sqM); Potassium 4.9 mmol/L (3.5-5.1); Sodium 134 mmol/L (137-145); Total Bilirubin 0.8 mg/dL (0.2-1.3); Total Protein 7.2 g/dL (6.3-8.2)
[2023-11-12] MEDS ORDERED: carvediloL 6.25 MG TAB PO SCH (09:00)
[2023-11-12] MEDS: carvediloL 3.125 MG TAB PO ONE (09:32)
[2023-11-12] MEDS: LOSARTAN 50 MG TAB PO SCH (09:32)
--- NOTE | 2023-11-12 11:21 | P.PN ---
Subjective Progress Note Date: 11/11/23 Patient was seen for a follow-up. Patient denies any focal neurological symptoms. All symptoms have resolved. No new concerns. Patient's was also present by the bedside. Objective - Vital Signs Vital signs: Vital Signs Temp 98.1 F 11/11/23 08:00 Pulse 93 11/11/23 17:11 Resp 16 11/11/23 17:11 BP 132/77 11/11/23 17:11 Pulse Ox 98 11/11/23 17:11 FiO2 Intake & Output 11/10/23 11/11/23 11/11/23 18:59 06:59 18:59 Intake Total 360 600 Balance 360 600 Weight 73.8 kg Intake: Oral 360 600 Other: Voiding Method Toilet Toilet Toilet # Voids 2 2 - Exam Completely normal, nonfocal. Mentation normal. Cranial nerves normal. No pronator drift. No ataxia. - Labs CBC & Chem 7: 11/09/23 14:45 11/12/23 07:06 Labs: Abnormal Lab Results - Last 24 Hours (Table) 11/11/23 Range/Units 08:35 Delta Bilirubin 0.3 H (0.0-0.2) mg/dL AST 346 H (14-36) U/L ALT 183 H (4-34) U/L Alkaline Phosphatase 156 H (38-126) U/L Triglycerides 153.00 H (0.00-149.00) mg/dL Cholesterol 274.00 H (0.00-200.00) mg/dL LDL Cholesterol, Calc 188.9 H (0.0-131.0) mg/dL Assessment and Plan Assessment: * Probable TIA manifesting with numbness of right side of the body including right arm and leg, and some visual disturbance. Most of the symptoms lasted for couple hours and then resolved. At present patient has no neurological symptoms. Examination is nonfocal, with NIH stroke scale is 0. * Hypertension * Tobacco use * Alcoholism * Marijuana use * Right lung nodule Plan: * Patient had a probable TIA and the symptoms have completely resolved. Current NIH stroke scale is 0. Patient not a candidate for thrombolysis. * CTA of head and neck revealed no significant abnormality. * Await 2D echo, rule out embolic source * Hemoglobin A1c 5.9 * Fasting lipid panel cholesterol 274, LDL 188.9, HDL 54, triglycerides 153. Patient started on Lipitor 80 mg daily. * Patient to be placed on dual antiplatelet therapy with aspirin 81 mg and Plavix 75 mg for 21 days, then stop Plavix and continue aspirin indefinitely. * Patient undergoing stress test as well. * MRI of the brain. * Recommend complete tobacco cessation. * Optimize control of blood pressure to normotensive level. * Telemetry monitoring, rule out arrhythmia. * Regarding pulmonary nodule, we will defer to IM. * Patient may need event monitoring, rule out PAF.
--- NOTE | 2023-11-12 12:46 | P.PN ---
Subjective HISTORY OF PRESENT ILLNESS: This is a 43-year-old female with past medical history of tobacco use and dependence. We have been asked to evaluate the patient for chest pain. Patient has no previous cardiac history and does not follow with a director of contracts. Patient presented with blood pressure of 171/113. Patient was working and developed dizziness, chest pain and right arm and mostly in the right hand. She describes chest discomfort with sweats, nausea. No CP with DB. No CP now but feels tired and has GARCIA. She also has sweaty and cold sensation. Smokes 1/2 PPD and 1 pint of alcohol per day and occasional marijuana use. Blood pressure 143 /86, heart rate 84, pulse ox 99% on room air. She is status post 2 L of IV fluid, Nitrostat and Tylenol. She has been told she has HTN and elevated LFTs but has not followed up on these issues. EKG: Sinus rhythm CAT scan of the brain: No acute process CTA head and neck: No significant abnormality CTA chest: No pulmonary embolism. 8.2 mm right apical lung nodule and neoplasm not excluded. Laboratory studies: WBC 13.9, hemoglobin 13.4. D-dimer 0.65. Sodium 134, potassium 4.6, creatinine 0.5. AST 270, ALT 108, alkaline phosphatase 189. Troponin negative x 3. proBNP 388. Triglycerides 155, cholesterol 279, LDL 185, HDL 62. TSH 1.89. Urine drug screen was negative. Acetaminophen level less than 10. Home cardiac medications: None 11/08 Patient denies having any chest pain no shortness of breath. She denies any sensation in her right arm. Blood pressure 145/80, heart rate 89, pulse ox 94% on room air. She states she is walked in her room without any symptoms. 11/10/23 Patient reports that she has been feeling fine. She denies any chest pain or pressure. No shortness of breath. She has been walking without issue. November 11, 2023 Patient examined this morning at the bedside. Patient currently denies chest pain or pressure. She denies shortness of breath. 11/12/2023 Patient examined this morning the bedside. Patient currently denies chest pain or pressure. She denies shortness of breath. Patient underwent stress echo yesterday which was negative for ischemia. Echocardiogram completed revealing ejection fraction 35 to 40%. Patient has been followed by neurology. Neurology believes patient has had a TIA and started the patient on Plavix for 21 days. PHYSICAL EXAM: VITAL SIGNS: Reviewed. GENERAL: Well-developed in no acute distress. NECK: Supple. No JVD or thyromegaly LUNGS: Respirations even and unlabored. Lungs essentially clear to auscultation bilaterally. HEART: Regular rate and rhythm. S1 and S2 heard. EXTREMITIES: Normal range of motion. No clubbing or cyanosis. Peripheral pulses intact. No lower extremity edema ASSESSMENT: Atypical chest pain, acute coronary syndrome ruled out Elevated liver function test Hypertension Hyperlipidemia 8.2 mm right apical lung nodule Tobacco use and dependence Alcohol abuse Possible TIA, per neurology Cardiomyopathy, 35 to 40%, suspect nonischemic, stress echo negative PLAN: Continue current cardiac medications Increase carvedilol to 6.25 mg twice a day Add losartan 50 mg daily Consider adding Aldactone on outpatient basis Patient is stable for discharge home today from a cardiac standpoint Patient is to follow-up postdischarge with Dr. Padron We will sign off. Please reconsult if needed. Nurse practitioner note has been reviewed by physician. Signing provider agrees with the documented findings, assessment, and plan of care documented by COMMUNITY SERVICE AIDE as a scribe. Objective - Vital Signs Vital signs: Vital Signs Temp 98.3 F 11/12/23 12:10 Pulse 71 11/12/23 12:10 Resp 16 11/12/23 12:10 BP 128/85 11/12/23 12:10 Pulse Ox 96 11/12/23 12:10 FiO2 Intake & Output 11/11/23 11/12/23 11/12/23 18:59 06:59 18:59 Intake Total 600 240 Balance 600 240 Weight 73.1 kg Intake: Oral 600 240 Other: Voiding Method Toilet Toilet # Voids 2 2 - Labs CBC & Chem 7: 11/09/23 14:45 11/12/23 07:06 Labs: Abnormal Lab Results - Last 24 Hours (Table) 11/11/23 11/12/23 Range/Units 08:35 07:06 Sodium 134 L (137-145) mmol/L Creatinine 0.51 L (0.52-1.04) mg/dL Glucose 124 H (74-99) mg/dL AST 332 H (14-36) U/L ALT 215 H (4-34) U/L Alkaline Phosphatase 150 H (38-126) U/L Triglycerides 153.00 H (0.00-149.00) mg/dL Cholesterol 274.00 H (0.00-200.00) mg/dL LDL Cholesterol, Calc 188.9 H (0.0-131.0) mg/dL
[2023-11-12] MEDS: carvediloL 6.25 MG TAB PO SCH (17:02)
--- NOTE | 2023-11-12 18:57 | P.PN ---
Subjective Progress Note Date: 11/12/23 Patient was seen for a follow-up. Patient denies any focal neurological symptoms. All symptoms have resolved. No new concerns. Patient denies any headache or dizziness. Objective - Vital Signs Vital signs: Vital Signs Temp 98.3 F 11/12/23 12:10 Pulse 83 11/12/23 17:58 Resp 16 11/12/23 17:58 BP 134/92 11/12/23 17:58 Pulse Ox 98 11/12/23 17:58 FiO2 Intake & Output 11/11/23 11/12/23 11/12/23 18:59 06:59 18:59 Intake Total 600 358 Balance 600 358 Weight 73.1 kg Intake: Oral 600 358 Other: Voiding Method Toilet Toilet # Voids 2 2 2 - Exam Completely normal, nonfocal. Mentation normal. Cranial nerves normal. No pronator drift. No ataxia. - Labs CBC & Chem 7: 11/09/23 14:45 11/12/23 07:06 Labs: Abnormal Lab Results - Last 24 Hours (Table) 11/12/23 Range/Units 07:06 Sodium 134 L (137-145) mmol/L Creatinine 0.51 L (0.52-1.04) mg/dL Glucose 124 H (74-99) mg/dL AST 332 H (14-36) U/L ALT 215 H (4-34) U/L Alkaline Phosphatase 150 H (38-126) U/L Assessment and Plan Assessment: * Probable TIA manifesting with numbness of right side of the body including right arm and leg, and some visual disturbance. Most of the symptoms lasted for couple hours and then resolved. At present patient has no neurological symptoms. Examination is nonfocal, with NIH stroke scale is 0. * Hypertension * Tobacco use * Alcoholism * Marijuana use * Right lung nodule Plan: * Patient had a probable TIA and the symptoms have completely resolved. Current NIH stroke scale is 0. Patient not a candidate for thrombolysis. * CTA of head and neck revealed no significant abnormality. * 2D echo revealed normal left ventricular size. Global decrease in c ontractility. Estimated EF is between 35 to 40%. Severely increased left ventricular systolic volume. Normal left atrial size. * Hemoglobin A1c 5.9 * Fasting lipid panel cholesterol 274, LDL 188.9, HDL 54, triglycerides 153. Patient started on Lipitor 80 mg daily. * Patient to be placed on dual antiplatelet therapy with aspirin 81 mg and Plavix 75 mg for 21 days, then stop Plavix and continue aspirin indefinitely. * Patient underwent stress test. Revealed fair exercise capacity with negative stress test by EKG criteria. Probable underlying nonischemic cardiomyopathy without evidence of ischemia on the stress echocardiogram. Discussed with cardiology team. Suspect patient has nonischemic cardiomyopathy from history of alcohol abuse. * Await MRI of the brain * Recommend complete tobacco cessation. * Optimize control of blood pressure to normotensive level. * Regarding pulmonary nodule, we will defer to IM. * Recommend event monitoring, rule out PAF. Addendum 6:45 PM: MRI of the brain completed. Official report pending. On my review, there is no acute ischemic process. No mass lesion. A single small T2/FLAIR hyperintensity, suggest remote demyelination. Neurologically clear for discharge.
--- NOTE | 2023-11-12 19:07 | P.PN ---
Subjective Progress Note Date: 11/12/23 From the records 43-year-old female with no significant past medical history presenting today for left-sided chest pain, dizziness with associated right upper extremity and right lower extremity pain and tingling. 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 This was followed by left-sided chest tightness that began radiating down her right arm. Initially had burning sensation going down right arm that progressed to a pins and needles sensation in the anterior right forearm. Also noted a similar sensation along the lateral aspect of her RLE. No new weakness, tingling does not encompass the entire extremity. Symptoms are improving. [place] somewhat short of breath, sweaty and nauseous during this episode. Patient is a current smoker and has been smoking since age of 14. Patient's father had a stroke at the age of 62. Patient has no history of ACS. No recent travel surgeries or hospitalizations. 2 weeks ago she did have an episode of hemoptysis. States she has headache however this is chronic for her and not new. Notes spots in her right eye that seems to come and go. 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 Blood work completed in ED reveals a WBC of 8.3, hemoglobin of 12.9 and platelet count of 283, sodium 136, potassium 4.5, BUNs/creatinine of 6/0.51 and blood glucose of 157, troponin less than 0.012, TSH of 1.890, AST/ALT elevated at 270/108 9/2 This is a pleasant 43 years old female who presents because of multiple medical problems, as per patient she was at work when she started feeling little dizzy with chest pain and right arm also felt funny weak and numb like burning that la sted till late afternoon Patient was admitted to the hospital and evaluated by civil designer restart her losartan and cleared for discharge. Patient also has elevated liver enzymes with slightly worsening, AST 160 on admission currently 234 and ALT 91 currently 135. Total bilirubin is within the reference range at 0.5 Patient states that she drinks alcohol about 1 pint per day, last drink was prio r to hospitalization. Also patient smokes cigarettes about half pack per day and she was counseled to quit and she is agrees currently has nicotine patch, she uses marijuana at times Currently patient has headache she woke up this morning about 7:00, feels foggy like all across her headache, nonradiating, she has some ear ringing on the left ear, she states she has this headache for 2 years Patient currently she does not have insurance and she does not follow-up with PCP Patient informed about her lung nodule and possibility of lung cancer and the need to repeat CT in 3 months and she is verbalized understanding and acceptance Hepatitis panel is still pending Liver ultrasound showing hepatomegaly with fatty liver possible CT of the chest showing right upper lobe lung nodule CT of the brain is negative for acute process CTA of the head and neck is negative for acute process either Urine drug screen is negative Acetaminophen less than 10 TSH is normal at 1.8 Lipase and amylase were negative 11/10 Patient overall feels fine with no chest pain no abdominal pain or vomiting. However her liver enzymes still trending up, liver ultrasound was negative. Patient is alcoholic and she still drinking alcohol however AST and ALT are trending up. Liver ultrasound was unremarkable. Hepatitis panel is pending. We will order hepatic Doppler to rule out portal venous thrombosis. 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 Neurology on consult due to reports for right leg/arm and facial weakness on admission with also tingling in the RUE. Patient states these symptoms have completely resolved at this time. She reports on admission also having chest tightness. Which has also resolved. On Carvedilol and losartan for improved BP control. Echocardiogram shows EF 35-40%. Stress echo shows ischemic cardiomyopathy likely but no acute ischemia. Patient is still pending MRI. LFTs remain elevated. No evidence of portal vein thrombosis on ultrasound and hepatitis panel is negative. Review of systems CONSTITUTIONAL: No fever, no malaise, no fatigue. HEENT: No recent visual problems or hearing problems. Denied any sore throat. CARDIOVASCULAR: No orthopnea, PND, no palpitations, no syncope. PULMONARY: No shortness of breath, no cough, no hemoptysis. GASTROINTESTINAL: No diarrhea, no nausea, no vomiting, no abdominal pain. Normoactive bowel sounds. NEUROLOGICAL: No headaches, no weakness, no numbness. PHYSICAL EXAMINATION: GENERAL: The patient is alert and oriented x3, not in any acute distress. Well developed, well nourished. HEENT: Pupils are round and equally reacting to light. EOMI. No scleral icterus. No conjunctival pallor. Normocephalic, atraumatic. No pharyngeal erythema. No thyromegaly. CARDIOVASCULAR: S1 and S2 present. No murmurs, rubs, or gallops. PULMONARY: Chest is clear to auscultation, no wheezing or crackles. ABDOMEN: Soft, nontender, nondistended, normoactive bowel sounds. No palpable organomegaly. MUSCULOSKELETAL: No joint swelling or deformity. EXTREMITIES: No cyanosis, clubbing, or pedal edema. NEUROLOGICAL: Gross neurological examination did not reveal any focal deficits. SKIN: No rashes. Assessment Ongoing headache with transient right upper extremity weakness and numbness which is resolved now rule out TIA Chest pain, atypical, resolved, cleared by civil designer could be due to hypertension Ischemic cardiomyopathy EF 35-40% Hypertension uncontrolled Dyslipidemia Alcohol use disorder, no significant signs symptoms of withdrawal Alcoholic hepatitis Right apical lung nodule, patient is aware and the need to close outpatient follow-up Nicotine dependence, patient counseled to quit and she agrees. Currently she is on nicotine patch Substance abuse with marijuana sometimes GI prophylaxis DVT prophylaxis Plan Continue losartan/carvedilol Pulmonary consult recommending outpatient follow up lung CT in 3 months Pending brain MRI which will happen tomorrow Continue monitoring liver enzymes, most likely secondary to alcohol effect, patient is asymptomatic, patient can follow-up as an outpatient Because of the transaminitis recommending holding off statin therapy discussed with cardiology Counseled on smoking and alcohol cessation Needs to establish with PCP on discharge Repeat CMP tomorrow D/C home in the next 24 hours needs brain MRI first. The impression and plan of care has been dictated by Deanna Kent Nurse Practitioner as directed. Dr. Carmita MD I have performed a history and physical examination and medical decision making of this patient, discussed the same with the dictator, and agree with the dictators assessment and plan as written, documented as a scribe. Based on total visit time, I have performed more than 50% of this visit. Objective - Vital Signs Vital signs: Vital Signs Temp 98.3 F 11/12/23 12:10 Pulse 83 11/12/23 17:58 Resp 16 11/12/23 17:58 BP 134/92 11/12/23 17:58 Pulse Ox 98 11/12/23 17:58 FiO2 Intake & Output 11/11/23 11/12/23 11/12/23 18:59 06:59 18:59 Intake Total 600 476 Balance 600 476 Weight 73.1 kg Intake: Oral 600 476 Other: Voiding Method Toilet Toilet # Voids 2 2 2 - Labs CBC & Chem 7: 11/09/23 14:45 11/12/23 07:06 Labs: Abnormal Lab Results - Last 24 Hours (Table) 11/12/23 Range/Units 07:06 Sodium 134 L (137-145) mmol/L Creatinine 0.51 L (0.52-1.04) mg/dL Glucose 124 H (74-99) mg/dL AST 332 H (14-36) U/L ALT 215 H (4-34) U/L Alkaline Phosphatase 150 H (38-126) U/L Assessment and Plan Time with Patient: Greater than 30
--- NOTE | 2023-11-12 19:11 | MR ---
EXAMINATION TYPE: MR brain wo con DATE OF EXAM: 11/12/2023 COMPARISON: CT brain 11/07/2023 HISTORY: Dizziness, tingling right hand. CONTRAST: None TECHNIQUE: Multiplanar, multiecho imaging on a 3.0 [place] magnet is performed through the brain. Stud y is not performed within 24 hours of arrival to the hospital. The craniovertebral junction is normal. The pituitary is normal. Diffusion-weighted imaging is performed. No abnormal hyperintensity is present to suggest an acute i ntracranial infarct or acute ischemic change. There are couple of periventricular white matter changes, not out of proportion to the patient's age. This is nonspecific but could be related to some chronic white matter ischemic change. Ventricles and sulci are appropriate for the patient age. Some mucosal thickening is through the right maxillary sinus IMPRESSION: 1. Couple of white matter changes in the periventricular white matter are nonspecific but could be re lated to chronic white matter ischemic change. 2. No suspicious acute intracranial process.
--- NOTE | 2023-11-12 21:43 | P.PN ---
Subjective Progress Note Date: 11/12/23 Patient is a 43-year-old female with past medical history significant for migraines, alcoholism, chronic ongoing tobacco dependence. She presented to emergency department originally on 11/08/2023. While at work, she was feeling dizzy. This was followed by chest tightness. She had some right arm and leg numbness/tingling. Brief episode of nausea and diaphoresis. States transient lost peripheral vision. Denies headaches. Denies recent falls or trauma. Brain CT without contrast does not show any acute intracranial process. No intraparenchymal hemorrhage or mass effect. Brain CTA does not show any significant flow limiting stenosis, aneurysm, or vascular malformation of the head/neck. Neurology is evaluating the patient. Denies current symptoms. TIA is in the differential. Incidentally, patient was found to have a 8.2 cm right apical lung nodule on chest CTA. No evidence of PE. No prior imaging available for comparison. Patient does have significant smoking history, started smoking at age 14, 1.5 pack/day until the last few months. No documented history of COPD. Denies change in chronic cough. Denies hemoptysis or chest pain. Denies unexplained weight loss. Denies personal history of cancer. Unsure if familial history of cancer. 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 Denies recent travel or pulmonary infections. Denies autoimmune diseases. CBC unremarkable. Most recent CMP: Sodium 135, potassium 4.8, chloride 105, serum bicarb 25, BUN 6, creatinine 0.5, glucose 108. LFTs mildly elevated. Patient does have history of alcohol abuse. Consumes 1 pint liquor per day on most days. Hepatitis panel nonreactive. Liver ultrasound demonstrating hepatomegaly. Urine drug screen negative. Troponin 0.012. NT proBNP 388. EKG showing normal sinus rhythm without any obvious acute ischemic changes. Patient is currently sitting up in bed. She is on room air. SpO2 98%. Afebrile. Remaining vital signs are stable. 11/12/2023, the patient has no specific complaints. The patient is doing well. MRI of the brain was also completed and the patient was found to have white matter changes in the periventricular white matter which are essentially nonspecific findings. There is evidence of chronic white matter ischemic change. No suspicious intracranial abnormalities. No evidence of any stroke. The patient also underwent ultrasound of the portal vein that showed no thrombosis. LFTs are probably elevated related to her alcohol abuse. The patient is also on Lipitor for now, high-dose statins in the LFTs have to be monitored. In terms of antiplatelet agents, the patient is on aspirin. I was asked to evaluate this patient regarding a pulmonary nodule in the right apex and this needs to be followed up on an outpatient basis. Echocardiogram showed a mild impaired LV function with an ejection fraction of 40%. Right-sided pressures could not be adequately assessed. The stress echocardiogram showed no evidence of any reversible ischemia. The patient's ultrasound of the liver showed hepatomegaly and mild fatty infiltration of the liver, normal gallbladder. Hepatitis profile was also negative. Objective - Vital Signs Vital signs: Vital Signs Temp 98.3 F 11/12/23 12:10 Pulse 71 11/12/23 12:10 Resp 16 11/12/23 12:10 BP 128/85 11/12/23 12:10 Pulse Ox 96 11/12/23 12:10 FiO2 Intake & Output 11/11/23 11/12/23 11/12/23 18:59 06:59 18:59 Intake Total 600 240 Balance 600 240 Weight 73.1 kg Intake: Oral 600 240 Other: Voiding Method Toilet Toilet # Voids 2 2 - Exam GENERAL EXAM: Alert, 43-year-old female, comfortable in no apparent distress. HEAD: Normocephalic and atraumatic EYES: Normal reaction of pupils, equal size. Conjugate gaze. No nystagmus. NOSE: Clear with pink turbinates. THROAT: No erythema or exudates. NECK: No masses, no JVD. CHEST: No chest wall deformity. LUNGS: Equal air entry with no crackles, wheeze, rhonchi or dullness. On room air. No conversational dyspnea or accessory muscle use.. CVS: S1 and S2 normal with no audible murmur, regular rhythm. No extra heart sounds ABDOMEN: No hepatosplenomegaly, active bowel sounds, no guarding or rigidity. SPINE: No scoliosis or deformity SKIN: No rashes CENTRAL NERVOUS SYSTEM: Cranial nerves II through XII intact. No focal deficits. Strength 5/5 in all extremities. No ataxia. Gait assessment deferred. Patellar DTRs 2+ bilaterally. EXTREMITIES: There is no peripheral edema, clubbing, or cyanosis. Peripheral pulses are intact. - Labs CBC & Chem 7: 11/09/23 14:45 09/04/24 07:06 Labs: Abnormal Lab Results - Last 24 Hours (Table) 11/11/23 11/12/23 Range/Units 08:35 07:06 Sodium 134 L (137-145) mmol/L Creatinine 0.51 L (0.52-1.04) mg/dL Glucose 124 H (74-99) mg/dL AST 332 H (14-36) U/L ALT 215 H (4-34) U/L Alkaline Phosphatase 150 H (38-126) U/L Triglycerides 153.00 H (0.00-149.00) mg/dL Cholesterol 274.00 H (0.00-200.00) mg/dL LDL Cholesterol, Calc 188.9 H (0.0-131.0) mg/dL Assessment and Plan Assessment: Right upper lobe, apical solitary pulmonary nodule, measuring 8.2 mm. To be worked up on outpatient basis Chronic ongoing tobacco dependence, recently cutting back to 1/2 pack/day, with over [id number] history Possible TIA, neurologic symptoms have spontaneously resolved in less than [address] without contrast does not show any intraparenchymal hemorrhage or mass effect. Brain CTA does not show any significant stenosis, aneurysm, or vascular malformations within the head/neck. Neurology is following. MRI of the brain shows chronic white matter ischemic changes. No other acute abnormalities. Atypical chest pain, resolved, ACS felt to be unlikely, negative cardiac stress test, echocardiogram showing a mild impairment of LV function with an ejection fraction of 40%. Hyperlipidemia Hypertension Alcoholism, reportedly drinks 1 pint of liquor per day most days of the week Elevated liver enzymes, likely secondary to above; hepatitis panel nonreactive, liver ultrasound showing hepatomegaly Recreational marijuana use Transaminitis, viral hepatitis screen was negative, ultrasound shows hepatomegaly. Patient is currently on statins. The patient ultrasound the portal vein was also negative. Plan: Right upper lobe apical solitary pulmonary nodule measuring 8.2 millimeters No prior imaging available for comparison. Neoplasm cannot be excluded, this is considered to be less likely within the next Recommendation is for short-term follow-up with chest CT in 3 months through 6 months Discussed with patient at length. Smoking cessation counseling performed, greater than 10 minutes Nicotine replacement offered Neurology is following patient High-dose statin, deferred at the moment as patient has elevated LFTs. Continue ASA Follow-up echocardiogram shows mild impairment of LV function Monitor CIWA, no acute signs of withdrawal at this time
[2023-11-13 07:12] LABS: ALT 214 U/L (4-34); AST 297 U/L (14-36); African American GFR (CKD) >90 (>60 ml/min/1.73 sqM); Alkaline Phosphatase 157 U/L (38-126); Anion Gap 7 mmol/L; Blood Urea Nitrogen 11 mg/dL (7-17); Calcium 9.7 mg/dL (8.4-10.2); Carbon Dioxide 23 mmol/L (22-30); Chloride 104 mmol/L (98-107); Glucose 127 mg/dL (74-99); Non-African American GFR(CKD) >90 (>60 ml/min/1.73 sqM); Potassium 4.6 mmol/L (3.5-5.1); Sodium 134 mmol/L (137-145); Total Bilirubin 0.5 mg/dL (0.2-1.3); Total Protein 6.9 g/dL (6.3-8.2)
[2023-11-13 08:40] VITALS: BP 129/85; PULSE 67; RESP 18; TEMP 98.2
[2023-11-13 11:50] VITALS: BMI 27.6
--- NOTE | 2023-11-13 16:37 | P.PN ---
Subjective Progress Note Date: 11/13/23 Patient was seen for a follow-up. Patient denies any focal neurological symptoms. All symptoms have resolved. No new concerns. Patient denies any headache or dizziness. Objective - Vital Signs Vital signs: Vital Signs Temp 98.2 F 11/13/23 08:00 Pulse 67 11/13/23 08:00 Resp 18 11/13/23 08:00 BP 129/85 11/13/23 08:00 Pulse Ox 97 11/13/23 08:00 FiO2 Intake & Output 11/12/23 11/13/23 11/13/23 18:59 06:59 18:59 Intake Total 476 Balance 476 Weight 73.1 kg Intake: Oral 476 Other: Voiding Method Toilet # Voids 2 2 - Exam Completely normal, nonfocal. Mentation normal. Cranial nerves normal. No pronator drift. No ataxia. - Labs CBC & Chem 7: 11/09/23 14:45 11/13/23 06:41 Labs: Abnormal Lab Results - Last 24 Hours (Table) 11/13/23 Range/Units 06:41 Sodium 134 L (137-145) mmol/L Glucose 127 H (74-99) mg/dL AST 297 H (14-36) U/L ALT 214 H (4-34) U/L Alkaline Phosphatase 157 H (38-126) U/L Assessment and Plan Assessment: * Probable TIA manifesting with numbness of right side of the body including right arm and leg, and some visual disturbance. Most of the symptoms lasted for couple hours and then resolved. At present patient has no neurological symptoms. Examination is nonfocal, with NIH stroke scale is 0. * Hypertension * Tobacco use * Alcoholism * Marijuana use * Right lung nodule Plan: * Patient had a probable TIA and the symptoms have completely resolved. Current NIH stroke scale is 0. Patient not a candidate for thrombolysis. * MRI of the brain revealed couple of white matter changes in the periventri cular white matter, are nonspecific but could be related to chronic white matter ischemic change. No suspicious acute intracranial process. On my review, there is no acute ischemic process. No mass lesion. A single small T2/FLAIR hyperintensity, suggest remote demyelination. * CTA of head and neck revealed no significant abnormality. * 2D echo revealed normal left ventricular size. Global decrease in contractility. Estimated EF is between 35 to 40%. Severely increased left ventricular systolic volume. Normal left atrial size. * Hemoglobin A1c 5.9 * Fasting lipid panel cholesterol 274, LDL 188.9, HDL 54, triglycerides 153. Patient started on Lipitor 80 mg daily. * Patient to be placed on dual antiplatelet therapy with aspirin 81 mg and Plavix 75 mg for 21 days, then stop Plavix and continue aspirin indefinitely. * Patient underwent stress test. Revealed fair exercise capacity with negative stress test by EKG criteria. Probable underlying nonischemic cardiomyopathy without evidence of ischemia on the stress echocardiogram. Discussed with cardiology team. Suspect patient has nonischemic cardiomyopathy from history of alcohol abuse. They do not feel need for DIOMEDES. * Recommend complete tobacco cessation. * Optimize control of blood pressure to normotensive level. * Regarding pulmonary nodule, we will defer to IM. * Patient underwent placement of a 30-day event monitoring, rule out PAF. * Neurologically clear for discharge.
--- NOTE | 2023-11-17 22:36 | P.DS ---
Providers Date of admission: 11/07/23 14:35 Attending physician: Hugo Christopher MD Consults: 11/10/23 08:59 Consult Physician Routine Consulting Provider: Terence Hanna Consult Reason/Comments: GARCIA, transient right arm weakness and numbness Do you want consulting provider notified?: Yes 11/10/23 09:04 Consult Physician Routine Consulting Provider: Marc Saldaña Consult Reason/Comments: lung nodule Do you want consulting provider notified?: Yes Primary care physician: Stated None Hospital Course: Final Diagnosis Ongoing headache with transient right upper extremity weakness and numbness which is resolved now rule out TIA Chest pain, atypical, resolved, cleared by inspector of weights and measures could be due to hypertension Ischemic cardiomyopathy EF 35-40% Hypertension uncontrolled Dyslipidemia Alcohol use disorder, no significant signs symptoms of withdrawal Alcoholic hepatitis Right apical lung nodule, patient is aware and the need to close outpatient follow-up Nicotine dependence, patient counseled to quit and she agrees. Currently she is on nicotine patch Substance abuse with marijuana sometimes Discharge Disposition Stable medically for discharge. Recommending to avoid alcohol and for smoking c essation. Patient to continue nicotine patch taper. Patient to follow up with Dr. Christine Garnett regarding the elevation of the LFTs. Patient informed about her lung nodule and possibility of lung cancer and the need to repeat CT in 3 months and she is verbalized understanding and acceptance. Will set up with medical assistant dermatology on discharge. Patient to avoid statin therapy for now secondary to the elevation in the LFTs. Continue on dual antiplatelet therapy for 21 days than continue aspirin indefinitely. Continue on carvedilol and losartan. Follow up neurology. Also needs to establish care with a primary provider. Hospital Course 43-year-old female with no significant past medical history presenting today for left-sided chest pain, dizziness with associated right upper extremity and right lower extremity pain and tingling. 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 This was followed by left-sided chest tightness that began radiating down her right arm. Initially had burning sensation going down right arm that progressed to a pins and needles sensation in the anterior right forearm. Also noted a similar sensation along the lateral aspect of her RLE. No new weakness, tingling does not encompass the entire extremity. Symptoms are improving. [place] somewhat short of breath, sweaty and n auseous during this episode. Patient is a current smoker and has been smoking since age of 14. Patient's father had a stroke at the age of 62. Patient has no history of ACS. No recent travel surgeries or hospitalizations. 2 weeks ago she did have an episode of hemoptysis. States she has headache however this is chronic for her and not new. Notes spots in her right eye that seems to come and go. 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 Patient also reports daily alcohol use about 1 pint per day. Blood work completed in ED reveals a WBC of 8.3, hemoglobin of 12.9 and platelet count of 283, sodium 136, potassium 4.5, BUNs/creatinine of 6/0.51 and blood glucose of 157, troponin less than 0.012, TSH of 1.890, AST/ALT elevated at 270/108. Admitted to the hospital with neurology consultation and full stroke work up. Additionally cardiology was consulted. Patient underwent CT of the chest showing right upper lobe lung nodule. CT of the brain is negative for acute process. CTA of the head and neck is negative for acute process either. Urine drug screen is negative. TSH is normal at 1.8. Lipase and amylase were negative. No evidence of portal vein thrombosis on ultrasound and hepatitis panel is negative. Echocardiogram shows EF 35-40%. Stress echo shows ischemic cardiomyopathy likely but no acute ischemia. Brain MRI reveals couple of white matter changes in the periventricular white matter are nonspecific but could be related to chronic white matter ischemic change. No suspicious acute intracranial process. No further reports of chest pain or right sided paresthesias or numbness. Patient was cleared for discharge and has been started on dual antiplatelet therapy due to the diagnosis of TIA. After 21 days recommending to stop the plavix and continue on aspirin 81 mg daily indefinitly. Due to the continued elevation of the LFTs statin therapy will be held at this time and recommending of close monitoring of the liver enzymes following discharge. Please see medication reconciliation for a list of current medications. Thank you for allowing us to participate in the care of this patient. The impression and plan of care has been dictated by Deanna Kent, Nurse Practitioner as directed. Dr. Carmita MD I have performed a history and physical examination and medical decision making of this patient, discussed the same with the dictator, and agree with the dictators assessment and plan as written, documented as a scribe. Based on total visit time, I have performed more than 50% of this visit. Patient Condition at Discharge: Fair Plan - Discharge Summary Discharge Rx Participant: Yes New Discharge Prescriptions: New Aspirin 81 mg PO DAILY #30 tab Losartan [Cozaar] 50 mg PO DAILY #30 tab Famotidine [Pepcid] 20 mg PO BID #60 tab Clopidogrel [Plavix] 75 mg PO DAILY #21 tab carvediloL [Coreg] 6.25 mg PO BID-W/MEALS #60 tab Nicotine 21Mg/24Hr Patch [Habitrol] 1 patch TRANSDERM DAILY #7 patch Continue [id number] [Excedrin] 0.5 tab PO Q4HR PRN PRN Reason: Pain Discharge Medication List [id number] [Excedrin] 0.5 tab PO Q4HR PRN 11/07/23 [History] Aspirin 81 mg PO DAILY #30 tab 11/12/23 [Rx] Clopidogrel [Plavix] 75 mg PO DAILY #21 tab 11/12/23 [Rx] Famotidine [Pepcid] 20 mg PO BID #60 tab 11/12/23 [Rx] Losartan [Cozaar] 50 mg PO DAILY #30 tab 11/12/23 [Rx] Nicotine 21Mg/24Hr Patch [Habitrol] 1 patch TRANSDERM DAILY #7 patch 11/12/23 [Rx] carvediloL [Coreg] 6.25 mg PO BID-W/MEALS #60 tab 11/12/23 [Rx] Follow up Appointment(s)/Referral(s): Khari Pardon DO [STAFF PHYSICIAN] - 2 Weeks (Cardiology office will call with a date and time for your follow-up appointment. ) Barbara Garnett MD [STAFF PHYSICIAN] - 11/19/23 2:00 pm (GI doctor for monitoring of liver; please arrive 15 minutes early for your appointment to fill out pa perwork and bring your insurance card if you carry insurance!) Staci Galarza MD [STAFF PHYSICIAN] - 1-2 Days (Please call to make a hospital follow-up with Dr. Small) None,Stated [Primary Care Provider] - 1-2 days Shade Suazo DO [STAFF PHYSICIAN] - 1 Week (Please call to make a follow-up with neurology ) Kerri Goodwin MD [STAFF PHYSICIAN] - 11/24/23 8:30 am (F/U pulmonary nodule with Dr. Goodwin 11/24/23 @ 8:30 am.) Ambulatory/Diagnostic Orders: Comprehensive Metabolic Panel [LAB.AMB] Time Frame: 3 Days, Location: None Selected Activity/Diet/Wound Care/Special Instructions: Monitor BP at Home Recommend to avoid alcohol Repeat blood work in 3 to 4 days to monitor liver enzymes and follow up with Dr. Christine Garnett with GI services on discharge Recommend smoking cessation Talk with your family doctor regarding starting a statin for cholesterol; will need to monitor your liver enzymes Need to establish care with a PCP Need follow up chest CT in 3 months for monitoring of the pulmonary nodule. Follow up with pulmonary Dr. Goodwin in the office. Patient to be placed on dual antiplatelet therapy with aspirin 81 mg and Plavix 75 mg for 21 days, then stop Plavix and continue aspirin indefinitely. Need to follow up with Dr Padron in the office - Cardiology Discharge Disposition: HOME SELF-CARE
--- NOTE | 2023-12-26 16:19 | P.CEMON ---
30 Day Event monitor note: Patient wore an event monitor for 28 days from 11/13/23-12/12/23. Findings: Patient's baseline heart rate was normal sinus rhythm. There were no signficant atrial fibrillation, atrial flutter, or ventricular tachycardia episodes. There were no significant pauses greater than 2 seconds. there were rare asymptomatic PVCs representing less than 1% PVC burden Conclusions: 30 day event monitor showing normal sinus rhythm, rare PVCs. No patient activated events.
== END 2023-11-13 13:28 | disposition home or self-care (01) ==
LOC: EC 11:07 → 6NMEDSUR 14:35 → 3SCARD 22:09
PROVIDERS: ADMIT Internal Medicine; ATTEND Internal Medicine
DX: R51.9 Headache, unspecified (principal); R53.1 Weakness; R20.0 Anesthesia of skin; R07.89 Other chest pain; F41.9 Anxiety disorder, unspecified; R91.1 Solitary pulmonary nodule; E78.5 Hyperlipidemia, unspecified; I10 Essential (primary) hypertension; F10.20 Alcohol dependence, uncomplicated; R74.8 Abnormal levels of other serum enzymes; R16.0 Hepatomegaly, not elsewhere classified; I25.5 Ischemic cardiomyopathy; K70.10 Alcoholic hepatitis without ascites; F12.10 Cannabis abuse, uncomplicated; F17.210 Nicotine dependence, cigarettes, uncomplicated; Z82.3 Family history of stroke
CPT/HCPCS: 36415; 70450; 70496; 70498; 70551; 71275; 76705; 80048; 80053; 80061; 80074; 80076; 80143; 80306; 82150; 83036; 83690; 83880; 84443; 84484; 85025; 85379; 85610; 85730; 93005; 93270; 93306; 93351; 93976; 96360; 96361; 99285

== ENCOUNTER → 2023-11-19 | Outpatient (CLI) | payer OTHER ==
[2023-11-20 03:00] LABS: Basophils # (A) 0.16 X 10*3/uL (0.00-0.10); Basophils % (A) 1.4 %; Eosinophils # (A) 0.25 X 10*3/uL (0.04-0.35); Eosinophils % (A) 2.1 %; HCT 40.6 % (37.2-46.3); HGB 13.1 g/dL (12.0-15.0); Lymphocytes # (A) 2.87 X 10*3/uL (0.90-5.00); Lymphocytes % (A) 24.3 %; MCH 32.8 pg (27.0-32.0); MCHC 32.3 g/dL (32.0-37.0); MCV 101.8 FL (80.0-97.0); Mean Platelet Volume 12.3 FL (9.5-12.2); Monocytes # (A) 0.85 X 10*3/uL (0.20-1.00); Monocytes % (A) 7.2 %; NRBC Per 100 WBC 0 X 10*3/uL (0.00-0.01); Neutrophils # (A) 7.65 X 10*3/uL (1.80-7.70); Neutrophils % (A) 64.6 %; Platelet Count 384 X 10*3/uL (140-440); RBC 3.99 X 10*6/uL (4.10-5.20); RDW 13.9 % (11.5-14.5); WBC 11.83 X 10*3/uL (4.50-10.00)
[2023-11-20 04:33] LABS: ALT 92 U/L (8-44); AST 74 U/L (13-35); Albumin 4.2 g/dL (3.8-4.9); Alkaline Phosphatase 181 U/L (41-126); BUN/Creat Ratio 19.33 Ratio (12.00-20.00); Blood Urea Nitrogen 11.6 mg/dL (9.0-27.0); Calcium 9.6 mg/dL (8.7-10.3); Carbon Dioxide 21.1 mmol/L (21.6-31.8); Chloride 105 mmol/L (96-109); Globulin 2.8 g/dL (1.6-3.3); Glucose 139 mg/dL (70-110); Potassium 4.6 mmol/L (3.5-5.5); Sodium 139 mmol/L (135-145); Total Bilirubin <0.2 mg/dL (0.3-1.2)
== END | disposition home or self-care (01) ==
LOC: LABWHC1 15:14
PROVIDERS: ATTEND Internal Medicine Gastroenterology
DX: F10.988 Alcohol use, unspecified with other alcohol-induced disorder (principal); K70.0 Alcoholic fatty liver
CPT/HCPCS: 36415; 80053; 85025